=== PATIENT | male | born 1935 | race Caucasian/White ===

== ENCOUNTER 2016-09-26 17:12 | Emergency (ER) | payer MEDICARE ==
[~2016-09-26] VITALS: Ht 175.3 cm; Wt 56.7 kg
[2016-09-26 17:12] VITALS: Ht 175.3 cm; Wt 56.7 kg
[~2016-09-26 17:12] MED LIST: ALBU0.425 IH; AMOX500T2 PO; BENZ100C97 PO; HYDR-2164 PO; IPRA3AMP11 IH; LISI-126 PO; PRED10TA PO
--- OUTSIDE RECORDS SUMMARY | 2016-09-26 17:15 | XMS REPORT ---
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
--- OUTSIDE RECORDS SUMMARY | 2016-09-26 17:15 | XMS REPORT ---
Author Author Amanda Silverio [facility] eClinicalWorks Address Unknown Phone Unavailable Care Team Providers Care Per Diem Name Role Phone Amanda Silverio CP Unavailable Allergies No Known Allergies Problems Problem Type Condition ICD-9 Code Onset Dates Condition Status Problem Personal history of tobacco use, presenting hazards to health V15.82 Active Problem Hypertension, benign 401.1 Active Problem Chronic airway obstruction, not elsewhere classified 496 Active Problem Insomnia, unspecified 780.52 Active Medications No Known Medications Vital Signs Date/Time: Feb 25, 2014 Height 69 inches Weight 137.8 lbs Temperature 97.5 F Blood Pressure Diastolic 84 mm Hg Blood Pressure Systolic 130 mm Hg Cardiac Monitoring Heart Rate 84 Beats per Minute BMI 20.35 Index Respiratory Rate 22 per Minute Results No Known Results Summary Purpose eClinicalWorks Submission
--- OUTSIDE RECORDS SUMMARY | 2016-09-26 17:15 | XMS REPORT ---
Author Author Amanda Silverio [facility] eClinicalWorks Address Unknown Phone Unavailable Care Team Providers Care Factory Maintenance Technician Name Role Phone Amanda Silverio CP Unavailable Allergies No Known Allergies Problems Problem Type Condition ICD-9 Code Onset Dates Condition Status Problem Personal history of tobacco use, presenting hazards to health V15.82 Active Problem Hypertension, benign 401.1 Active Problem Chronic airway obstruction, not elsewhere classified 496 Active Problem Insomnia, unspecified 780.52 Active Medications No Known Medications Results No Known Results Summary Purpose eClinicalWorks Submission
--- OUTSIDE RECORDS SUMMARY | 2016-09-26 17:15 | XMS REPORT ---
Author Author Amanda Silverio [facility] eClinicalWorks Address Unknown Phone Unavailable Care Team Providers Care Ep Technologist Name Role Phone Amanda Silverio CP Unavailable Allergies No Known Allergies Problems Problem Type Condition ICD-9 Code Onset Dates Condition Status Problem Personal history of tobacco use, presenting hazards to health V15.82 Active Problem Hypertension, benign 401.1 Active Problem Chronic airway obstruction, not elsewhere classified 496 Active Problem Insomnia, unspecified 780.52 Active Medications Medication Code System Code Instructions Start Date End Date Status Dosage Albuterol Sulfate [facility] [address]-30 (2.5 MG/3ML) 0.083% Inhalation Four times a day Jan 14, 2013 Active 3 ml ProAir HFA [facility] [address]-94 108 (90 Base) MCG/ACT Inhalation every 2-4 hrs September 16, 2013 Active 2 puffs as needed Ipratropium [place] [facility] [address]-34 0.02% 0.5MG/VIA Active INHALE 1 VIAL VIA NEBULIZER 4 TIMES DAILY Hydrochlorothiazide [facility] [address]-67 25MG Active TAKE ONE TABLET BY MOUTH ONCE DAILY Lisinopril [facility] [address]-04 20MG Active TAKE TWO TABLETS BY MOUTH ONCE DAILY Vital Signs Date/Time: Mar 29, 2014 Height 69 inches Weight 138.8 lbs Temperature 97.7 F Blood Pressure Diastolic 50 mm Hg Blood Pressure Systolic 140 mm Hg Cardiac Monitoring Heart Rate 88 Beats per Minute BMI 20.49 Index Respiratory Rate 18 per Minute Results No Known Results Summary Purpose eClinicalWorks Submission
--- OUTSIDE RECORDS SUMMARY | 2016-09-26 17:15 | XMS REPORT ---
Author Author Amanda Silverio Organization eClinicalWorks Address Unknown Phone Unavailable Care Team Providers Care Element Setter Name Role Phone Amanda Silverio CP Unavailable Allergies No Known Allergies Problems Problem Type Condition ICD-9 Code Onset Dates Condition Status Problem Personal history of tobacco use, presenting hazards to health V15.82 Active Problem Hypertension, benign 401.1 Active Problem Chronic airway obstruction, not elsewhere classified 496 Active Problem Insomnia, unspecified 780.52 Active Assessment Dental abscess 522.5 Active Medications Medication Code System Code Instructions Start Date End Date Status Dosage Albuterol Sulfate [facility] [address]-36 (2.5 MG/3ML) 0.083% Inhalation Four times a day Jan 14, 2013 Active 3 ml Lisinopril [facility] [address]-05 20 MG Orally Once a day Feb 19, 2013 Active 2 tablets Hydrochlorothiazide [facility] [address]-07 25 MG Orally Once a day Active 1 capsule Amoxicillin [facility] [address]-16 500 MG Orally every 8 hrs Mar 29, 2014 Apr 08, 2014 Active 1 tablet ProAir HFA [facility] [address]-00 108 (90 Base) MCG/ACT Inhalation every 2-4 hrs September 16, 2013 Active 2 puffs as needed Procedures Procedure Coding System Code Date INJECTION (plus drug) CPT-4 05367 Mar 29, 2014 Lidocaine injection CPT-4 J2001 Mar 29, 2014 ROCEPHIN 250MG CPT-4 J0696 Mar 29, 2014 OFFICE VISIT, EST-LOW COMPLEXITY (15 MIN.) CPT-4 94751 Mar 29, 2014 Vital Signs Date/Time: Mar 29, 2014 Height 69 inches Weight 138.8 lbs Temperature 97.7 F Blood Pressure Diastolic 50 mm Hg Blood Pressure Systolic 140 mm Hg Cardiac Monitoring Heart Rate 88 Beats per Minute BMI 20.49 Index Respiratory Rate 18 per Minute Results No Known Results Immunizations Vaccine Administration Date Rocephin 500mg Mar 29, 2014 Lidocaine Mar 29, 2014 Summary Purpose eClinicalWorks Submission
--- OUTSIDE RECORDS SUMMARY | 2016-09-26 17:15 | XMS REPORT ---
Author Author Amanda Silverio [facility] eClinicalWorks Address Unknown Phone Unavailable Care Team Providers Care Proposal Analyst Name Role Phone Amanda Silverio CP Unavailable Allergies No Known Allergies Problems Problem Type Condition Code Onset Dates Condition Status Assessment Personal history of nicotine dependence Z87.891 Active Assessment Insomnia, unspecified G47.00 Active Problem Personal history of nicotine dependence Z87.891 Active Problem Chronic airway obstruction, not elsewhere classified 496 Active Problem Chronic obstructive pulmonary disease, unspecified J44.9 Active Problem Insomnia, unspecified 780.52 Active Assessment Chronic obstructive pulmonary disease, unspecified J44.9 Active Problem Personal history of tobacco use, presenting hazards to health V15.82 Active Problem Hypertension, benign 401.1 Active Medications Medication Code System Code Instructions Start Date End Date Status Dosage ProAir HFA [facility] [address]-89 108 (90 Base) MCG/ACT Inhalation every 2-4 hrs September 16, 2013 2 puffs as needed Albuterol Sulfate [facility] [address]-49 (2.5 MG/3ML) 0.083% Inhalation Four times a day Jan 14, 2013 3 ml Ipratropium [place] [facility] [address]-13 0.02% 0.5MG/VIA Inhalation Four times a day August 25, 2016 inhale one vial via nebulizer 4 times daily Procedures Procedure Coding System Code Date CMP CPT-4 14851 August 31, 2015 IH LIPID PANEL CPT-4 11289 August 31, 2015 COMPLETE CBC W/AUTO DIFF WBC CPT-4 51842 August 31, 2015 Results Name Result Date Reference Range Unit Abnormality Flag In House Lipid Panel ----VLDL 20 [id number] ----LDL 89 31912872 ----Chol/HDL Ratio 2.8 20150831 ----Cholesterol 168 90619538 ----HDL 59 38543860 ----Triglycerides 102 27875602 ----nHDLc 109 25844362 In House CMP ----BUN 15 96913194 7 - 22 mg/DL ----Calcium 9.5 70870544 8.0 - 10.3 mg/DL ----Alkaline Phosphatase 102 66031759 53 - 128 u/L ----Creatinine 1.0 88430161 0.6 - 1.2 mg/DL ----AST 23 25217003 11 - 38 u/L ----Total Bilirubin 0.7 75957284 0.2 - 1.6 mg/DL ----ALT 19 58796466 10 - 47 u/L ----Total Protein 6.9 14139899 6.4 - 8.1 G/DL ----Chloride 103 64777245 98 - 108 mmol/L ----Glucose 90 53463182 73 - 118 mg/DL ----Potassium 4.4 48033969 3.6 - 5.1 mmol/L ----Albumin 3.8 88574428 3.3 - 5.5 g/DL ----EGFR >60 34200797 ----CO2 32 59662756 18 - 33 mmol/L ----Sodium 142 68452678 128 - 145 mmol/L Summary Purpose eClinicalWorks Submission
--- OUTSIDE RECORDS SUMMARY | 2016-09-26 17:15 | XMS REPORT ---
Author Author Amanda Silverio [facility] eClinicalWorks Address Unknown Phone Unavailable Care Team Providers Care Commercial Sewing Instructor Name Role Phone Amanda Silverio CP Unavailable [...]
--- OUTSIDE RECORDS SUMMARY | 2016-09-26 17:16 | XMS REPORT ---
Author Author Amanda Silverio [facility] eClinicalWorks Address Unknown Phone Unavailable Care Team Providers Care Registered Nurse Obstetrics Name Role Phone Amanda Silverio CP Unavailable [...]
--- OUTSIDE RECORDS SUMMARY | 2016-09-26 17:16 | XMS REPORT ---
Author Amanda Vu [facility] eClinicalWorks Address Unknown Phone Unavailable Care Team Providers Care Rail Gang Supervisor Name Role Phone Amanda Silverio CP Unavailable Allergies No Known Allergies Problems Problem Type Condition ICD-9 Code Onset Dates Condition Status Problem Personal history of tobacco use, presenting hazards to health V15.82 Active Problem Hypertension, benign 401.1 Active Problem Chronic airway obstruction, not elsewhere classified 496 Active Assessment Personal history of tobacco use, presenting hazards to health V15.82 Active Assessment Hypertension, benign 401.1 Active Problem Insomnia, unspecified 780.52 Active Assessment Chronic airway obstruction, not elsewhere classified 496 Active Medications Medication Code System Code Instructions Start Date End Date Status Dosage Lisinopril [facility] [address]-32 20 MG Orally Once a day Feb 19, 2013 Active 2 tablets ProAir HFA [facility] [address]-74 108 (90 Base) MCG/ACT Inhalation every 2-4 hrs September 16, 2013 Active 2 puffs as needed Hydrochlorothiazide [facility] [address]-64 25 MG Orally Once a day Active 1 capsule Albuterol Sulfate [facility] [address]-58 (2.5 MG/3ML) 0.083% Inhalation Four times a day Jan 14, 2013 Active 3 ml Procedures Procedure Coding System Code Date COMPREHENSIVE METABOLIC PANEL CPT-4 59570 Feb 25, 2014 LIPID PANEL CPT-4 27818 Feb 25, 2014 COMPLETE CBC W/AUTO DIFF WBC CPT-4 04584 Feb 25, 2014 OFFICE VISIT, EST-LOW COMPLEXITY (15 MIN.) CPT-4 09539 Feb 25, 2014 Vital Signs Date/Time: Feb 25, 2014 Height 69 inches Weight 137.8 lbs Temperature 97.5 F Blood Pressure Diastolic 84 mm Hg Blood Pressure Systolic 130 mm Hg Cardiac Monitoring Heart Rate 84 Beats per Minute BMI 20.35 Index Respiratory Rate 22 per Minute Results Name Result Date Reference Range Unit CBC With Platelet and Differential ----Absolute Eosinophils 0.05 13845135 -0.00-0.50 THOUS ----Absolute Monocytes 0.68 84671554 -0.30-1.00 THOUS ----Neutrophils 57 72144183 -51-75 % ----Absolute Basophils 0.01 82435594 -0.00-0.20 THOUS ----MPV 9.0 02411205 -8.8-14.8 fL ----Monocytes 12 69427408 -4-11 % ----RDW 13.1 08517482 -11.5-14.5 % ----Lymphocytes 29 06593320 -20-46 % ----MCHC 34.3 13992901 -32.0-36.0 g/dL ----MCH 33.0 36264881 -27.0-32.0 pg ----MCV 96.1 12462905 -82.0-99.0 fL ----Immature Granulocytes 0.2 27979167 -0.0-1.0 % ----Platelet Count 233 35573738 -150-400 K/uL ----Absolute Lymphocytes 1.66 75882968 -0.80-3.30 THOUS ----Absolute Neutrophils 3.25 46880820 -1.90-7.00 THOUS ----Eosinophils 1 39204518 -0-4 % ----Basophils 0 41302138 -0-2 % ----WBC 5.7 75266281 -4.8-10.8 K/uL ----RBC 4.58 65048101 -4.60-6.20 M/uL ----HGB 15.1 04911468 -14.0-18.0 g/dL ----HCT 44.0 62389917 -42.0-52.0 % Comprehensive Metabolic Panel (CMP) Immunizations Vaccine Administration Date Refused Influenza Feb 25, 2014 Refused Pneumovax Feb 25, 2014 Summary Purpose eClinicalWorks Submission
--- OUTSIDE RECORDS SUMMARY | 2016-09-26 17:16 | XMS REPORT ---
Author Author Amanda Silverio [facility] eClinicalWorks Address Unknown Phone Unavailable Care Team Providers Care [place]ra [place]ta Setter Name Role Phone Amanda Silverio CP Unavailable Allergies No Known Allergies Problems Problem Type Condition ICD-9 Code Onset Dates Condition Status Problem Personal history of tobacco use, presenting hazards to health V15.82 Active Problem Hypertension, benign 401.1 Active Problem Chronic airway obstruction, not elsewhere classified 496 Active Problem Insomnia, unspecified 780.52 Active Assessment Hypertension, benign 401.1 Active Medications Medication Code System Code Instructions Start Date End Date Status Dosage Hydrochlorothiazide [facility] [address]-74 25MG Orally Once a day 1 tablet Lisinopril [facility] [address]-92 20MG Orally Once a day TAKE TWO TABLETS BY MOUTH ONCE DAILY Results No Known Results Summary Purpose eClinicalWorks Submission
--- OUTSIDE RECORDS SUMMARY | 2016-09-26 17:16 | XMS REPORT ---
Author Author Amanda Silverio [facility] eClinicalWorks Address Unknown Phone Unavailable Care Team Providers Care Film Processing Shift Supervisor Name Role Phone Amanda Silverio CP Unavailable Allergies No Known Allergies Problems Problem Type Condition Code Onset Dates Condition Status Problem Chronic obstructive pulmonary disease, unspecified J44.9 Active Problem Personal history of nicotine dependence Z87.891 Active Problem Essential (primary) hypertension I10 Active Problem Hypertension, benign 401.1 Active Problem Insomnia, unspecified 780.52 Active Problem Chronic airway obstruction, not elsewhere classified 496 Active Problem Personal history of tobacco use, presenting hazards to health V15.82 Active Medications No Known Medications Results No Known Results Summary Purpose eClinicalWorks Submission
--- OUTSIDE RECORDS SUMMARY | 2016-09-26 17:16 | XMS REPORT ---
Author Amanda Vu eClinicalWorks Address Unknown Phone Unavailable Care Team Providers Care Last Inserter Name Role Phone Amanda Silverio CP Unavailable Allergies, Adverse Reactions, Alerts Substance Reaction Event Type N.K.D.A. 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 [address]-78 0.02% 0.5MG/VIA Inhalation Four times a day September 08, 2015 INHALE ONE VIAL VIA NEBULIZER 4 TIMES DAILY Albuterol Sulfate [facility] [address]-89 (2.5 MG/3ML) 0.083% Inhalation Four times a day Jan 14, 2013 3 ml Hydrochlorothiazide [facility] [address]-41 25MG Orally Once a day 1 tablet [address] [facility] [address]-57 20MG Orally Once a day TAKE TWO TABLETS BY MOUTH ONCE DAILY ProAir HFA [facility] [address]-24 108 (90 Base) MCG/ACT Inhalation every 2-4 hrs September 16, 2013 2 puffs as needed Amoxicillin-Pot Clavulanate [facility] [address]-06 875-125 MG Orally Twice a day Mar 24, 2015 Mar 31, 2015 1 tablet Procedures Procedure Coding System Code Date OFFICE VISIT, EST-LOW COMPLEXITY (15 MIN.) CPT-4 47060 Mar 24, 2015 [facility] visit Established Patient CPT-4 G0467 Mar 24, 2015 Vital Signs Date/Time: Mar 24, 2015 Height 69 in Weight 136.8 lbs Temperature 97.7 F Blood Pressure Diastolic 63 mm Hg Blood Pressure Systolic 104 mm Hg Cardiac Monitoring Heart Rate 88 /min BMI 20.20 Index Respiratory Rate 16 /min Results No Known Results Summary Purpose eClinicalWorks Submission
--- OUTSIDE RECORDS SUMMARY | 2016-09-26 17:16 | XMS REPORT ---
Author Amanda Vu eClinicalWorks Address Unknown Phone Unavailable Care Team Providers Care Detective Sergeant Name Role Phone Amanda Silverio CP Unavailable [...] Date End Date Status Dosage ProAir HFA [facility] [address]-78 108 (90 Base) MCG/ACT Inhalation every 2-4 hrs September 16, 2013 2 puffs as needed Albuterol Sulfate [facility] [address]-20 (2.5 MG/3ML) 0.083% Inhalation Four times a day Jan 14, 2013 3 ml Ipratropium [place] [facility] [address]-03 0.02% 0.5MG/VIA Inhalation Four times a day September 08, 2015 INHALE ONE VIAL VIA NEBULIZER 4 TIMES DAILY Lisinopril [facility] [address]-43 20MG Orally Once a day TAKE TWO TABLETS BY MOUTH ONCE DAILY Hydrochlorothiazide [facility] [address]-19 25MG Orally Once a day TAKE ONE TABLET BY MOUTH ONCE DAILY Procedures Procedure Coding System Code Date [facility] visit Established Patient CPT-4 G0467 September 27, 2014 OFFICE VISIT, EST-LOW COMPLEXITY (15 MIN.) CPT-4 19791 September 27, 2014 [facility] visit New Patient CPT-4 G0466 September 27, 2014 Vital Signs Date/Time: September 27, 2014 Height 69 in Weight 132.8 lbs Temperature 97.8 F Blood Pressure Diastolic 74 mm Hg Blood Pressure Systolic 110 mm Hg Cardiac Monitoring Heart Rate 88 /min BMI 19.61 Index Respiratory Rate 16 /min Results No Known Results Summary Purpose eClinicalWorks Submission
--- OUTSIDE RECORDS SUMMARY | 2016-09-26 17:16 | XMS REPORT ---
Author Author Amanda Silverio [facility] eClinicalWorks Address Unknown Phone Unavailable Care Team Providers Care Denture Model Maker Name Role Phone Amanda Silverio CP Unavailable [...]
--- OUTSIDE RECORDS SUMMARY | 2016-09-26 17:16 | XMS REPORT ---
Author Author Amanda Silverio [facility] eClinicalWorks Address Unknown Phone Unavailable Care Team Providers Care Hoop Maker Name Role Phone Amanda Silverio CP [...] Start Date End Date Status Dosage Ipratropium [place] [facility] [address]-34 0.02% 0.5MG/VIA Inhalation Four times a day September 08, 2015 INHALE ONE VIAL VIA NEBULIZER 4 TIMES DAILY Lisinopril [facility] [address]-32 20MG Orally Once a day TAKE TWO TABLETS BY MOUTH ONCE DAILY Hydrochlorothiazide [facility] [address]-47 25MG Orally Once a day TAKE ONE TABLET BY MOUTH ONCE DAILY Results No Known Results Summary Purpose eClinicalWorks Submission
--- OUTSIDE RECORDS SUMMARY | 2016-09-26 17:16 | XMS REPORT ---
Author Author Amanda Silverio [facility] eClinicalWorks Address Unknown Phone Unavailable Care Team Providers Care Motion Picture Actor Name Role Phone Amanda Silverio CP Unavailable [...]
--- OUTSIDE RECORDS SUMMARY | 2016-09-26 17:16 | XMS REPORT ---
Author Author Amanda Silverio [facility] eClinicalWorks Address Unknown Phone Unavailable Care Team Providers Care Delivery And Mail Sorter Name Role Phone Amanda Silverio CP Unavailable [...] Date End Date Status Dosage Albuterol Sulfate [facility] [address]-21 (2.5 MG/3ML) 0.083% Inhalation Four times a day Jan 14, 2013 3 ml Vital Signs Date/Time: May 20, 2014 Height 69 inches Weight 133.4 lbs Temperature 97.3 F Blood Pressure Diastolic 84 mm Hg Blood Pressure Systolic 128 mm Hg Cardiac Monitoring Heart Rate 92 Beats per Minute BMI 19.70 Index Respiratory Rate 18 per Minute Results No Known Results Summary Purpose eClinicalWorks Submission
--- OUTSIDE RECORDS SUMMARY | 2016-09-26 17:16 | XMS REPORT ---
Author Author Amanda Silverio Organization eClinicalWorks Address Unknown Phone Unavailable Care Team Providers Care Plastering Supervisor Name Role Phone Amanda Silverio CP [...] Start Date End Date Status Dosage Ipratropium [place] [facility] [address]-72 0.02% 0.5MG/VIA Inhalation Four times a day August 25, 2016 inhale one vial via nebulizer 4 times daily Albuterol Sulfate [facility] [address]-12 (2.5 MG/3ML) 0.083% Inhalation Four times a day Jan 14, 2013 3 ml ProAir HFA [facility] [address]-26 108 (90 Base) MCG/ACT Inhalation every 2-4 hrs September 16, 2013 2 puffs as needed Procedures Procedure Coding System Code Date OFFICE VISIT, EST-LOW COMPLEXITY (15 MIN.) CPT-4 53280 August 31, 2015 [facility] visit Established Patient CPT-4 G0467 August 31, 2015 Vital Signs Date/Time: August 31, 2015 Temperature 98.0 F Height 69 in Weight 135.8 lbs Blood Pressure Diastolic 90 mm Hg Blood Pressure Systolic 128 mm Hg Cardiac Monitoring Heart Rate 88 /min BMI 20.05 Index Respiratory Rate 16 /min Results No Known Results Summary Purpose eClinicalWorks Submission
--- OUTSIDE RECORDS SUMMARY | 2016-09-26 17:16 | XMS REPORT ---
Author Author Amanda Silverio [facility] eClinicalWorks Address Unknown Phone Unavailable Care Team Providers Care General Production Laborer Name Role Phone Amanda Silverio CP Unavailable [...] Start Date End Date Status Dosage Ipratropium [place] [facility] [address]-28 0.02% 0.5MG/VIA Inhalation Four times a day September 08, 2015 INHALE ONE VIAL VIA NEBULIZER 4 TIMES DAILY Results No Known Results Summary Purpose eClinicalWorks Submission
--- OUTSIDE RECORDS SUMMARY | 2016-09-26 17:16 | XMS REPORT ---
Author Author Amanda Silverio [facility] eClinicalWorks Address Unknown Phone Unavailable Care Team Providers Care Surveyor Helper Rod Name Role Phone Amanda Silverio CP Unavailable Allergies No Known Allergies Problems Problem Type Condition Code Onset Dates Condition Status Problem Personal history of tobacco use, presenting hazards to health V15.82 Active Problem Hypertension, benign 401.1 Active Problem Chronic airway obstruction, not elsewhere classified 496 Active Assessment Hypertension, benign 401.1 Active Problem Insomnia, unspecified 780.52 Active Assessment Chronic airway obstruction, not elsewhere classified 496 Active Medications Medication Code System Code Instructions Start Date End Date Status Dosage Hydrochlorothiazide [facility] [address]-06 25MG Orally Once a day TAKE ONE TABLET BY MOUTH ONCE DAILY Lisinopril [facility] [address]-76 20MG Orally Once a day TAKE TWO TABLETS BY MOUTH ONCE DAILY Albuterol Sulfate [facility] [address]-10 (2.5 MG/3ML) 0.083% Inhalation Four times a day Jan 14, 2013 3 ml ProAir HFA [facility] [address]-02 108 (90 Base) MCG/ACT Inhalation every 2-4 hrs September 16, 2013 2 puffs as needed Ipratropium [place] [facility] [address]-77 0.02% 0.5MG/VIA Inhalation Four times a day September 08, 2015 INHALE ONE VIAL VIA NEBULIZER 4 TIMES DAILY Procedures Procedure Coding System Code Date COMPLETE CBC W/AUTO DIFF WBC CPT-4 62234 September 27, 2014 Results No Known Results Summary Purpose eClinicalWorks Submission
--- OUTSIDE RECORDS SUMMARY | 2016-09-26 17:16 | XMS REPORT ---
Author Author Amanda Silverio [facility] eClinicalWorks Address Unknown Phone Unavailable Care Team Providers Care Optical Technician Name Role Phone Amanda Silverio CP Unavailable Allergies No Known Allergies Problems Problem Type Condition ICD-9 Code Onset Dates Condition Status Problem Personal history of tobacco use, presenting hazards to health V15.82 Active Problem Hypertension, benign 401.1 Active Problem Chronic airway obstruction, not elsewhere classified 496 Active Problem Insomnia, unspecified 780.52 Active Medications No Known Medications Vital Signs Date/Time: May 28, 2013 Height 69 inches Weight 139.8 lbs Temperature 96.2 F Blood Pressure Diastolic 70 mm Hg Blood Pressure Systolic 130 mm Hg Cardiac Monitoring Heart Rate 80 Beats per Minute BMI 20.64 Index Respiratory Rate 16 per Minute Results No Known Results Summary Purpose eClinicalWorks Submission
--- OUTSIDE RECORDS SUMMARY | 2016-09-26 17:16 | XMS REPORT ---
Author Author Amanda Silverio [facility] eClinicalWorks Address Unknown Phone Unavailable Care Team Providers Care Solar Sales Advisor Name Role Phone Amanda Silverio CP Unavailable [...] Date End Date Status Dosage ProAir HFA [facility] [id number] (90 Base) MCG/ACT Inhalation every 2-4 hrs September 16, 2013 2 puffs as needed Results No Known Results Summary Purpose eClinicalWorks Submission
[2016-09-26] MEDS ORDERED: NORMAL SALINE 1,000 ML IV ONE (17:28)
--- NOTE | 2016-09-26 17:28 | ERPDOC ---
Departure Disposition Decision Date: September 26, 2016 Disposition Decision Time: 18:47 Disposition: 01 DISCHARGED HOME, SELF-CARE Impression Impression Impression: Primary Impression: Pneumonia Additional Impression: COPD exacerbation Severity: Severe Condition: Improved Seen By: Physician only Referrals: GLORIA VILLALPANDO APRN (Family) Patient Instructions: COPD (Chronic Obstructive Pulmonary Disease) (ED), Pneumonia (ED) Problems/Meds/Labs Reviewed?: Yes Medications reviewed and manag: Yes Additional Instructions: Zithromax 500 mg daily for 3 days. Prednisone 10 mg tablet. 3 tabs daily for 3 days, 2 tabs daily for 3 days, 1 tab daily for 3 days. Follow-up with your primary care provider in the next 48 hours. Follow up care ordered?: Yes Mental Status: Alert, Oriented Scripts Prednisone (Prednisone) 10 Mg Tablet 0 PO TAPERQD, #18 TAB 30 mg daily x3 days 20 mg daily x3 days 10 mg daily x2 days Prov: AMALIA GORDILLO MD 09/26/16 HPI - Dyspnea General Chief Complaint: Dyspnea/Respdistress Stated Complaint: CHEST TIGHTNESS Time Seen by Provider: 17:27 HPI - Dyspnea Initial Comments 81-year-old gentleman with acute respiratory distress, brought in by EMS. Patient was given Solu-Medrol 125 mg IV on transport and started on albuterol nebulizer by mask. He has long-standing history of COPD, and is greater than 65- pack-year history of smoking. He is still smoking 1/3-1/2 pack per day but trying to cut down. He was out trying to help his son today got into some dust and that set off his breathing issues. He feels like his little thirsty and dehydrated. Initially he was breathing approximately 40 times per minute and satting 98% on room air, but still feeling very short of breath. Fevers or chills but has been feeling more weak the last couple of days, feels like he may be coming down with something. His mucous is been thickening and turning darker until today he had a hard time bringing it up at all. Allergies: Coded Allergies: No Known Drug Allergies (Verified Allergy, Unknown, 09/12/14) Past History Past Medical History Metabolic: hypertension Respiratory: COPD Integumentary: other Vaccines Hx Influenza Vaccination: No Social History Smoking Status: Current every day smoker Substance Use Type: does not use Record Review Pertinent history updated: Yes Review of Systems Cardiovascular Cardiac: see HPI Rhythm/Rate: see HPI Pulmonary Respiratory: see HPI Musculoskeletal General: see HPI All other Systems All Other Systems: Reviewed and Negative Physical Exam General General Nourishment: adult, cachectic, acute distress Distress Description Acutely short of air, patient is gasping and gulping air. Vitals and Pain First Documented Vital Signs Date Time Temp Pulse Resp B/P Pulse Ox O2 Delivery O2 Flow Rate FiO2 09/26/16 17:12 97.6 103 24 150/107 97 Room Air Weight: Kilograms: Height (feet): 5 Height (inches): 9 Triage Pain Scale: Normal Exams: Head: Normocephalic w/o trauma Abdomen: Bowel sounds positive, soft, non-tender, non-distended, no hepatosplenomegaly, masses or bruits noted Neurologic: Patient is alert, and oriented, cranial nerves, motor/sensory/ cerebellar, exams w/o gross deficits, to observation Respiratory (brief) Comments Significant expiratory wheeze with prolonged expiration. This is a bilateral phenomenon, however right side has worse expiration wheezing. Cardiovascular (brief) Comments Tachycardic. Differential Diagnoses Considering: Acute Bronchitis, Acute OH, Acute Respiratory Failure, Asthma Exacerbation, COPD Exacerbation, Pneumonia, Pulmonary Edema, Pulmonary Embolus Progress Results/Orders Orders Procedure Category Date Status Time Cmp - Comprehensive LAB 09/26/16 Complete Metabolic 17:28 Blood Gas, Arterial - LAB 09/26/16 Complete ABG 17:28 Probnp LAB 09/26/16 Complete 17:28 Cbc W/Auto LAB 09/26/16 Complete Diff-Reflex Manual 17:28 Blood Culture ZACHARIAH 09/26/16 In Process 17:28 D-Dimer LAB 09/26/16 Complete 17:28 Troponin I W LAB 09/26/16 Complete Hemolysis Index 17:28 Ua, Dip Wreflex LAB 09/26/16 Logged Microsc & Metal Patternmaker 17:28 Sputum Culture W/Gram ZACHARIAH 09/26/16 Logged Stain 17:28 EKG EKG 09/26/16 Logged 17:28 Chest, Pa & Lateral RAD 09/26/16 Taken 17:28 Iv Lock (Ed Only) EDM 09/26/16 Transmitted 17:28 Normal Saline (Normal PHA 09/26/16 In Process Saline Iv) 17:28 Albuterol/Ipratropium PHA 09/26/16 Complete (Duoneb) 17:30 Oxygen Administration EDM 09/26/16 Transmitted 17:28 Respiratory Panel, Pcr LAB 09/26/16 Logged 17:28 Lab Results Laboratory Tests Test 09/26/16 17:42 09/26/16 18:03 White Blood Count 6.3T/MM3 Red Blood Count 4.66M/MM3 Hemoglobin 15.2GM/DL Hematocrit 44.1% Mean Corpuscular Volume 94.6UM3 Mean Corpuscular Hemoglobin 32.6UUG Mean Corpuscular Hemoglobin Concent 34.5GM/DL RDW Standard Deviation 43.2FL Platelet Count 197T/MM3 Mean Platelet Volume 8.8UM3 Immature Granulocyte % (Auto) 0.2% Neutrophils (%) (Auto) 60.1% Lymphocytes (%) (Auto) 28.4% Monocytes (%) (Auto) 10.0% Eosinophils (%) (Auto) 1.1% Basophils (%) (Auto) 0.2% Absolute Immature Granulocyte (auto 0.01T/MM3 Absolute Neutrophils (auto) 3.8T/MM3 Absolute Lymphocytes (auto) 1.8T/MM3 Absolute Monocytes (auto) 0.6T/MM3 Absolute Eosinophils (auto) 0.1T/MM3 Absolute Basophils (auto) 0.0T/MM3 D-Dimer 294NG/ML Turbidity < 20 Sodium Level 141MEQ/L Potassium Level 3.8MEQ/L Chloride Level 95MEQ/L Carbon Dioxide Level 33MEQ/L Anion Gap 13MEQ/L Blood Urea Nitrogen 16.0MG/DL Creatinine 1.0MG/DL Glomerular Filtration Rate Calc 72 BUN/Creatinine Ratio 16RATIO Glucose Level 111MG/DL Calculated Osmolality 273MOSM/KG Calcium Level 9.3MG/DL Total Bilirubin 1.00MG/DL Icterus Index < 2 Aspartate Amino Transf (AST/SGOT) 22U/L Alanine Aminotransferase (ALT/SGPT) 39U/L Alkaline Phosphatase 113U/L Troponin I < 0.012ng/ml WR-Ccp-L-Type Natriuretic Peptide 634PG/ML Total Protein 7.1G/DL Albumin 4.3G/DL Globulin 2.8G/DL Albumin/Globulin Ratio 1.5RATIO Chemistry Specimen Hemolysis < 15 Arterial Blood pH 7.430 Arterial Blood Partial Pressure CO2 51MMHG Arterial Blood pO2 at Patient Temp 63MMHG Arterial Blood HCO3 34MEQ/L Arterial Blood Total CO2 35.5MEQ/L Arterial Blood Oxygen Saturation 92.0% Arterial Blood Base Excess 8.2MMOL/L Oxygen Delivery Method (LAB) Nasal cannula,liters Blood Gas Oxygen Liter Flow 2 Blood Gas Oxygen Percent Given Blood Gas Vent Rate Blood Gas Tidal Volume ML Medications Current ED Medications Sodium Chloride (Normal Saline IV) 1,000 ml @ 500 mls/hr Q2H ONCE IV Last administered on 09/26/16 18:03; Start 09/26/16 at 17:28; Stop 09/26/16 at 19:27 Albuterol/ Ipratropium (Duoneb) 3 ml O ONCE AEROSOL Last administered on 17:20; Start 09/26/16 at 17:30; Stop 09/26/16 at 17:34; Status DC Progress Progress Patient responded well to a second DuoNeb treatment after arriving in ER. He initially came in from the EMS with 125 Solu-Medrol IV and a partially finished albuterol treatment. That was finish the second DuoNeb was added and he was given time. During which he improved dramatically. Chest x-ray shows probable right lower lobe infiltrate. White count is normal at 6.3. He does have slightly elevated BUNs. However think this is infectious and inflammatory rather than dehydration is an issue for him. Port score was 50 which keeps him low risk and outpatient. He would like to go home rather than be admitted to the hospital at this point. We are still pending a viral respiratory panel and urinalysis. If he is still stable to time does arrive and he would like to go home I feel like this is appropriate. He'll be given Rocephin 1 g IV while in the ER and discharged on Zithromax 500 mg daily for 3 days and a prednisone burst and taper. He'll continue with his home nebulizer and follow up with his primary care provider. AMALIA GORDILLO MD September 26, 2016 17:28
[2016-09-26] MEDS ORDERED: ALBUTEROL/IPRATROPIUM INHAL. 2.5mg-0.5mg/3ml Neb. AEROSOL ONE (17:30)
--- NOTE | 2016-09-26 17:47 | NUR ---
IMAGING PT TO IMAGING AT THIS TIME VIA CART. NO SIGN OF DISTRESS AT THIS TIME.
[2016-09-26 17:53] LABS: BASOPHILS % (AUTO) 0.2 % (0-2); EOSINOPHILS # (AUTO) 0.1 T/MM3 (0-0.5); EOSINOPHILS % (AUTO) 1.1 % (0-4); HCT - HEMATOCRIT 44.1 % (41-53); HGB - HEMOGLOBIN 15.2 GM/DL (13.5-17.5); IMMATURE GRANULOCYTE # (AUTO) 0.01 T/MM3 (0.00-0.03); IMMATURE GRANULOCYTE % (AUTO) 0.2 % (0.0-0.5); LYMPHOCYTES # (AUTO) 1.8 T/MM3 (1-4.8); LYMPHOCYTES % (AUTO) 28.4 % (23-45); MEAN CORPUSCULAR HGB 32.6 UUG (26-34); MEAN CORPUSCULAR HGB CONC(MCHC 34.5 GM/DL (31-37); MEAN CORPUSCULAR VOLUME 94.6 UM3 (80-100); MEAN PLATELET VOLUME 8.8 UM3 (9.4-12.4); MONOCYTES # (AUTO) 0.6 T/MM3 (0-0.8); NEUTROPHILS #(AUTO)-ABSOLUTE 3.8 T/MM3 (1.8-7.7); NEUTROPHILS % (AUTO) 60.1 % (33-66); RED BLOOD COUNT 4.66 M/MM3 (4.50-5.90); WBC - WHITE BLOOD COUNT 6.3 T/MM3 (4.5-11.0)
[2016-09-26] MEDS ORDERED: ALBU8.5H INH (17:53)
--- NOTE | 2016-09-26 17:57 | NUR ---
IMAGING PT RETURN TO ROOM FROM IMAGING AT THIS TIME - NO SIGN OF DISTRESS.
[2016-09-26 18:03] LABS: ALBUMIN 4.3 G/DL (3.5-5.0); ALBUMIN/GLOBULIN RATIO 1.5 RATIO (1.1-2.2); ALKALINE PHOSPHATASE 113 U/L (38-126); ALT (SGPT) 39 U/L (21-72); ANION GAP 13 MEQ/L (5-15); AST (SGOT) 22 U/L (17-59); BUN/CREATININE RATIO 16 RATIO (6-26); CALCIUM 9.3 MG/DL (8.4-10.2); CHLORIDE 95 MEQ/L (98-107); CO2 - CARBON DIOXIDE 33 MEQ/L (22-30); GLOMERULAR FILTRATION RATE 72; GLUCOSE 111 MG/DL (75-110); POTASSIUM 3.8 MEQ/L (3.6-5); SODIUM 141 MEQ/L (134-144); TOTAL PROTEIN 7.1 G/DL (6.3-8.2)
[2016-09-26 18:14] LABS: PROBNP 634 PG/ML (0-175)
[2016-09-26] MEDS ORDERED: IPRA3AMP AEROSOL (18:26)
--- NOTE | 2016-09-26 18:29 | NUR ---
REPORT RECIEVED REPORT FROM ENEIDA GARRETT
--- NOTE | 2016-09-26 18:30 | NUR ---
RESP PANEL RESP PANEL IS COLLECTED AND SENT TO LAB
--- NOTE | 2016-09-26 18:48 | NUR ---
UA PT URINATED IN URINAL. UA COLLECTED AND SENT TO LAB
[2016-09-26] MEDS ORDERED: PRED10TA PO (18:49)
[2016-09-26 18:54] LABS: BLOOD, URINE NEGATIVE (NEGATIVE); COLOR,URINE YELLOW (YELLOW); LEUKOCYTE ESTERASE ,URINE NEGATIVE (NEGATIVE); NITRITE,URINE NEGATIVE (NEGATIVE); UROBILINOGEN,URINE 0.2 EU/DL (NORMAL)
[2016-09-26] MEDS ORDERED: CEFTRIAXONE I.V. (ER USE ONLY) 1 G in NORMAL SALINE 100 ML IV ONE (19:00)
[2016-09-26] MEDS ORDERED: AZITHROMYCIN 250 MG SENT HOME ONE (19:00)
--- NOTE | 2016-09-26 19:10 | NUR ---
STATUS PT UP TO THE BATHROOM WITH O2 AT 2L/NC
[2016-09-26 20:40] VITALS: BP 132/83; PULSE 88; RESP 30; TEMP 97.8; O2SAT 91
--- NOTE | 2016-09-26 20:40 | NUR ---
DEPART PT IS GIVEN DISMISSAL INSTRUCTIONS WITH VERBAL UNDERSTANDING. PT UNDERSTANDS HE NEEDS TO FOLLOW UP AT [facility]. PT IS GIVEN P[REPACK AND SCRIPT. PT LEAVES AMBULATORY TO ED REGISTRATION DESK.
--- NOTE | 2016-09-27 08:39 | DI ---
INDICATION: ITS.REASON: dyspnea PROCEDURE: CHEST 2-VIEWS UPRIGHT (PA \T\ LAT) Encounter: Initial Comparison: September 12, 2014 Findings: The lungs are stable in appearance without new focal airspace consolidation. Emphysema. There is no pleural effusion or pneumothorax. The heart size, pulmonary vascularity and mediastinal contours are unchanged. IMPRESSION: Stable appearance of the chest without acute cardiopulmonary disease. .
== END 2016-09-26 20:40 | disposition home or self-care (01) ==
LOC: ED 17:12
DX: J44.0 Chronic obstructive pulmonary disease with (acute) lower respiratory infection (principal); J18.9 Pneumonia, unspecified organism; J44.1 Chronic obstructive pulmonary disease with (acute) exacerbation; F17.200 Nicotine dependence, unspecified, uncomplicated
CPT/HCPCS: 36415; 71020; 80053; 81003; 82803; 83880; 84484; 85025; 85379; 87040; 87486; 87581; 87633; 87798; 93005; 94640; 96361; 96365; 99284; A9270; J0696; J7030; J7050; 87070; 87205

== ENCOUNTER 2016-10-05 04:11 | Emergency (ER) | payer MEDICARE ==
[~2016-10-05] VITALS: Ht 175.3 cm; Wt 55.0 kg
[~2016-10-05 04:11] MED LIST changes: -ALBU0.425 IH; +ALBU8.5H INH; -AMOX500T2 PO; -BENZ100C97 PO; +IPRA3AMP AEROSOL; -IPRA3AMP11 IH; -LISI-126 PO
[2016-10-05 04:12] VITALS: Ht 175.3 cm; Wt 55.0 kg
--- NOTE | 2016-10-05 04:15 | NUR ---
PROVIDER/RT DR. GORDILLO AND RT IN ROOM WITH PT.
--- OUTSIDE RECORDS SUMMARY | 2016-10-05 04:16 | XMS REPORT | Continuity of Care Document ---
Author Author [facility] Organization [facility] Address Unknown Phone Unavailable Support Name Relationship Address Phone ANNALISA MEIER APRN Caregiver [address] [place] [address] Unavailable AMALIA GORDILLO MD Caregiver [address] [place] [id number] Unavailable PEMA FELICIANO Next Of Kin [address] [place] [address] Insurance Providers Guarantor Bipin Feliciano Address [address] [place] [address] Email DENIED 09-26-16 Payer Medicare Policy Number [id number] Subscriber's Name RejiBipin valle Relationship 18 Self Effective Date 01 Chief Complaint and Reason for Visit Chief Complaint Dyspnea/Respdistress Reason for Visit [id number] Pneumonia Problems Active Problems Medical Problem Onset Date Status Acute bronchitis Unknown Acute Past Problems Medical Problem Onset Date COPD exacerbation Unknown Pneumonia Unknown Medications Current Home Medications Medication Dose Units Route Directions Days Qty Instructions Start Date Albuterol Sulfate (Proair Hfa 90 Mcg/Actuation) 8.5 Gm Hfa.aer.ad 1 Puff Inhalation Every 4 Hours as needed for Prn Orders 09/26/16 Hydrochlorothiazide 25 Mg Tablet 25 Mg Oral Daily 08/18/11 Ipratropium/Albuterol Sulfate (Iprat-Albut 0.5-3(2.5) Mg/3 Ml) 3 Ml Ampul.neb 1 Vial Aerosol Tx. Every 4 Hours as needed for Prn Orders 09/26/16 Prednisone 10 Mg Tablet 0 Oral Taper Qd 18 Tablet 30 mg daily x3 days 20 mg daily x3 days 10 mg daily x2 days 09/26/16 Past Home Medications Medication Directions Ordered Status None , 10/26/09 Discontinued Social History Social History Problem Response Recorded Date/Time Onset Date Status Hx Substance Use No 09/26/2016 8:00pm Not Applicable Not Applicable Hx Alcohol Use No 09/26/2016 8:00pm Not Applicable Not Applicable Tobacco Usage smoke 09/24/2014 1:26pm Not Applicable Not Applicable Query Response Start Date Stop Date Smoking Status Current every day smoker Hospital Discharge Instructions No hospital discharge instructions. Plan of Care Discharge Date 09/26/16 8:40pm Disposition 01 DISCHARGED HOME, SELF-CARE Condition at Discharge Improved Instructions/Education Provided COPD (Chronic Obstructive Pulmonary Disease) ( ED) Pneumonia (ED) Prescriptions See Medication Section Referrals ANNALISA MEIER TYRE FINISHER AND EXAMINER Address: [address] [place], [place] [phone] Additional Instructions/Education Zithromax 500 mg daily for 3 days. Prednisone 10 mg tablet. 3 tabs daily for 3 days, 2 tabs daily for 3 days, 1 tab daily for 3 days. Follow-up with your primary care provider in the next 48 hours. Care Plan and Goals Physician Care Plan Problem: COPD with PNA Goal: Follow up with primary care provider Instructions: Take medications and follow care plan as discussed/written Functional Status No functional status results. Allergies, Adverse Reactions, Alerts Allergen Type Severity Reaction Status Last Updated No Known Drug Allergies Allergy Unknown Active 09/12/14 Immunizations Query Response on File Recorded Date/Time Hx Influenza Vaccination No 09/12/14 4:40am Hx Influenza Vaccination No 09/12/14 4:40am Vital Signs Acute Vital Signs Vital Response Date/Time Temperature (Fahrenheit) 97.8 deg F (96.8 - 99.1) 09/26/2016 8:40pm Temperature (Calculated Celsius) 36.26971 degrees C (36.0 - 37.3) 09/26/2016 8:40pm Pulse Rate (adult) 88 bpm (60 - 100) 09/26/2016 8:40pm Respiratory Rate 30 breaths/min (10 - 20) 09/26/2016 8:40pm O2 Sat by Pulse Oximetry 91 % (90 - 100) 09/26/2016 8:40pm Oxygen Flow Rate 2.00 L/min 09/26/2016 7:00pm Blood Pressure 132/83 mm Hg 09/26/2016 8:40pm Height (Feet) 5 feet 09/26/2016 5:12pm Height (Inches) 9.00 inches 09/26/2016 5:12pm Weight (Kilograms) 56.700 kg 09/26/2016 5:12pm Body Mass Index (BMI) 18.0 09/26/2016 5:12pm Results Laboratory Results Test Name Result Units Flags Reference Collection Date/Time Result Date/ Time Comments White Blood Count 6.3 T/MM3 4.5-11.0 09/26/2016 5:42pm 09/26/2016 5: 53pm Red Blood Count 4.66 M/MM3 4.50-5.90 09/26/2016 5:42pm 09/26/2016 5: 53pm Hemoglobin 15.2 GM/DL 13.5-17.5 09/26/2016 5:42pm 09/26/2016 5:53pm Hematocrit 44.1 % 41-53 09/26/2016 5:42pm 09/26/2016 5:53pm Mean Corpuscular Volume 94.6 UM3 80-100 09/26/2016 5:42pm 09/26/2016 5: 53pm Mean Corpuscular Hemoglobin 32.6 UUG 26-34 09/26/2016 5:42pm 2016 5:53pm Mean Corpuscular Hemoglobin Concent 34.5 GM/DL 31-37 09/26/2016 5:42pm 09/26/2016 5:53pm RDW Standard Deviation 43.2 FL 36.9-50.2 09/26/2016 5:42pm 09/26/2016 5 :53pm Platelet Count 197 T/MM3 130-400 09/26/2016 5:42pm 09/26/2016 5:53pm Mean Platelet Volume 8.8 UM3 L 9.4-12.4 09/26/2016 5:42pm 09/26/2016 5: 53pm Neutrophils (%) (Auto) 60.1 % 33-66 09/26/2016 5:42pm 09/26/2016 5: 53pm Lymphocytes (%) (Auto) 28.4 % 23-45 09/26/2016 5:42pm 09/26/2016 5: 53pm Monocytes (%) (Auto) 10.0 % H 0-9.0 09/26/2016 5:42pm 09/26/2016 5:53pm Eosinophils (%) (Auto) 1.1 % 0-4 09/26/2016 5:42pm 09/26/2016 5:53pm Basophils (%) (Auto) 0.2 % 0-2 09/26/2016 5:42pm 09/26/2016 5:53pm Immature Granulocyte % (Auto) 0.2 % 0.0-0.5 09/26/2016 5:42pm 2016 5:53pm Absolute Neutrophils (auto) 3.8 T/MM3 1.8-7.7 09/26/2016 5:42pm 2016 5:53pm Absolute Lymphocytes (auto) 1.8 T/MM3 1-4.8 09/26/2016 5:42pm 2016 5:53pm Absolute Monocytes (auto) 0.6 T/MM3 0-0.8 09/26/2016 5:42pm 09/26/2016 5:53pm Absolute Eosinophils (auto) 0.1 T/MM3 0-0.5 09/26/2016 5:42pm 2016 5:53pm Absolute Basophils (auto) 0.0 T/MM3 0-0.2 09/26/2016 5:42pm 09/26/2016 5:53pm Absolute Immature Granulocyte (auto 0.01 T/MM3 0.00-0.03 09/26/2016 5: 42pm 09/26/2016 5:53pm D-Dimer 294 NG/ML H 0-230 09/26/2016 5:42pm 09/26/2016 6:00pm <230 NG/ ML D-DU=PRESUMPTIVE NEGATIVE FOR PE OR DVT >230 NG/ML D-DU=ADDITIONAL EVAL FOR PE OR DVT RECOMMENDED Icterus Index < 2 0-7 09/26/2016 5:42pm 09/26/2016 6:03pm Chemistry Specimen Hemolysis < 15 0-25 09/26/2016 5:42pm 09/26/2016 6 :03pm 0-25: Specimen Exhibited No Hemolysis. Turbidity < 20 0-20 09/26/2016 5:42pm 09/26/2016 6:03pm Sodium Level 141 MEQ/L 134-144 09/26/2016 5:42pm 09/26/2016 6:03pm Potassium Level 3.8 MEQ/L 3.6-5 09/26/2016 5:42pm 09/26/2016 6:03pm Chloride Level 95 MEQ/L L 98-107 09/26/2016 5:42pm 09/26/2016 6:03pm Carbon Dioxide Level 33 MEQ/L H 22-30 09/26/2016 5:42pm 09/26/2016 6: 03pm Anion Gap 13 MEQ/L 5-15 09/26/2016 5:42pm 09/26/2016 6:03pm Blood Urea Nitrogen 16.0 MG/DL 9-20 09/26/2016 5:42pm 09/26/2016 6: 03pm Creatinine 1.0 MG/DL 0.8-1.5 09/26/2016 5:42pm 09/26/2016 6:03pm BUN/Creatinine Ratio 16 RATIO 6-26 09/26/2016 5:42pm 09/26/2016 6:03pm Glomerular Filtration Rate Calc 72 09/26/2016 5:42pm 09/26/2016 6: 03pm Glucose Level 111 MG/DL H 75-110 09/26/2016 5:42pm 09/26/2016 6:03pm Calculated Osmolality 273 MOSM/KG 261-280 09/26/2016 5:42pm 09/26/2016 6:03pm Calcium Level 9.3 MG/DL 8.4-10.2 09/26/2016 5:42pm 09/26/2016 6:03pm Total Bilirubin 1.00 MG/DL 0.20-1.30 09/26/2016 5:42pm 09/26/2016 6: 03pm Alkaline Phosphatase 113 U/L 38-126 09/26/2016 5:42pm 09/26/2016 6: 03pm Total Protein 7.1 G/DL 6.3-8.2 09/26/2016 5:42pm 09/26/2016 6:03pm Albumin 4.3 G/DL 3.5-5.0 09/26/2016 5:09/26/2016 6:03pm Globulin 2.8 G/DL 2.4-3.6 09/26/2016 5:42pm 09/26/2016 6:03pm Albumin/Globulin Ratio 1.5 RATIO 1.1-2.2 09/26/2016 5:42pm 09/26/2016 6 :03pm Aspartate Amino Transf (AST/SGOT) 22 U/L 17-59 09/26/2016 5:42pm 2016 6:03pm Alanine Aminotransferase (ALT/SGPT) 39 U/L 21-72 09/26/2016 5:42pm 6:03pm Troponin I < 0.012 ng/ml 0-0.12 09/26/2016 5:42pm 09/26/2016 6:14pm Troponin values with a difference of 55% increase from orginal troponin value represent a true biological DELTA value. (%increase Calc=Orginal Troponin value, divided by subsequent Troponin value, multiplied by 100) XK-Eon-X-Type Natriuretic Peptide 634 PG/ML H 0-175 09/26/2016 5:42pm 6:14pm Rule in cut points: <50 years old=450; 50-75 years old=900; >75 years old=1800; When utilizing ProBNP rule-in cut points, adjustment for impaired renal function is typically not required. Arterial Blood pH 7.430 7.350-7.450 09/26/2016 6:03pm 09/26/2016 6: 07pm Arterial Blood Partial Pressure CO2 51 MMHG H 34-45 09/26/2016 6:03pm 6:07pm Arterial Blood pO2 at Patient Temp 63 MMHG L 80-100 09/26/2016 6:03pm 6:07pm Arterial Blood HCO3 34 MEQ/L H 22-26 09/26/2016 6:03pm 09/26/2016 6: 07pm Arterial Blood Total CO2 35.5 MEQ/L H 23-27 09/26/2016 6:03pm 2016 6:07pm Arterial Blood Base Excess 8.2 MMOL/L H -2.0-2.0 09/26/2016 6:03pm 09/26 6:07pm Arterial Blood Oxygen Saturation 92.0 % L 95.0-98.0 09/26/2016 6:03pm 6:07pm Blood Gas Oxygen Liter Flow 2 09/26/2016 6:03pm 09/26/2016 6:07pm Oxygen Delivery Method (LAB) NASAL CANNULA,LITERS 09/26/2016 6:03pm 09/26/2016 6:07pm Adenovirus (PCR) NEGATIVE NEGATIVE 09/26/2016 6:21pm 09/26/2016 7: 59pm Coronavirus Type 229E (PCR) NEGATIVE NEGATIVE 09/26/2016 6:21pm 09/26 7:59pm Coronavirus Type HKU1 (PCR) NEGATIVE NEGATIVE 09/26/2016 6:21pm 09/26 7:59pm Coronavirus Type NL63 (PCR) NEGATIVE NEGATIVE 09/26/2016 6:pm 09/26 7:59pm Coronavirus Type OC43 (PCR) NEGATIVE NEGATIVE 09/26/2016 6:pm 09/26 7:59pm Human Metapneumovirus (PCR) NEGATIVE NEGATIVE 09/26/2016 6:pm 09/26 7:59pm Enterovirus/Rhinovirus (PCR) NEGATIVE NEGATIVE 09/26/2016 6:pm 7:59pm Influenza Virus Type A (PCR) NEGATIVE NEGATIVE 09/26/2016 6:21pm 7:59pm Influenza Virus Type B (PCR) NEGATIVE NEGATIVE 09/26/2016 6:pm 7:59pm Parainfluenza Type 1 (PCR) NEGATIVE NEGATIVE 09/26/2016 6:pm 2016 7:59pm Parainfluenza Type 2 (PCR) NEGATIVE NEGATIVE 09/26/2016 6:pm 2016 7:59pm Parainfluenza Type 3 (PCR) NEGATIVE NEGATIVE 09/26/2016 6:pm 2016 7:59pm Parainfluenza Type 4 (PCR) NEGATIVE NEGATIVE 09/26/2016 6:pm 2016 7:59pm Respiratory Syncytial Virus (PCR) NEGATIVE NEGATIVE 09/26/2016 6:pm 09/26/2016 7:59pm Bordetella parapertussis DNA (PCR) NEGATIVE NEGATIVE 09/26/2016 6: pm 09/26/2016 7:59pm Chlamydia pneumoniae DNA (PCR) NEGATIVE NEGATIVE 09/26/2016 6:pm 7:59pm Mycoplasma pneumoniae (PCR) NEGATIVE NEGATIVE 09/26/2016 6:pm 09/26 7:59pm Urine Collection Type [place] 09/26/2016 6:pm 2016 6:54pm Urine Color YELLOW YELLOW 09/26/2016 6:pm 09/26/2016 6:54pm Urine Turbidity CLEAR CLEAR 09/26/2016 6:pm 09/26/2016 6:54pm Urine Specific [place] 1.015 1.015-1.025 09/26/2016 6:pm 2016 6:54pm Urine pH 6.5 5.0-8.0 09/26/2016 6:21pm 09/26/2016 6:54pm Urine Leukocyte Esterase NEGATIVE NEGATIVE 09/26/2016 6:21pm 2016 6:54pm Urine Nitrite NEGATIVE NEGATIVE 09/26/2016 6:21pm 09/26/2016 6:54pm Urine Protein NEGATIVE NEGATIVE 09/26/2016 6:21pm 09/26/2016 6:54pm Urine Glucose (UA) NEGATIVE NEGATIVE 09/26/2016 6:21pm 09/26/2016 6: 54pm Urine Ketones NEGATIVE NEGATIVE 09/26/2016 6:21pm 09/26/2016 6:54pm Urine Urobilinogen 0.2 EU/DL NORMAL 09/26/2016 6:21pm 09/26/2016 6: 54pm Urine Bilirubin NEGATIVE NEGATIVE 09/26/2016 6:21pm 09/26/2016 6: 54pm Urine Blood NEGATIVE NEGATIVE 09/26/2016 6:21pm 09/26/2016 6:54pm Urinalysis Comment MICROSCOPIC NOT IND. 09/26/2016 6:21pm 2016 6:54pm Microbiology Results Procedure Source Organism/Result Collection Date/Time Result Date/Time Result Status Blood Culture Peripheral/Iv Start CULTURE INITIATED - RESULTS PENDING 09/26 5:45pm 09/26/2016 5:50pm Preliminary Procedures No known history of procedures. Encounters Encounter Location Arrival/Admit Date Discharge/Depart Date Attending Provider Departed Emergency Room [facility] 09/26/16 5:12pm 09/26/16 8: 40pm AMALIA GORDILLO MD Recent Diagnosis
--- NOTE | 2016-10-05 04:28 | ERPDOC ---
Departure Disposition Decision Date: October 05, 2016 Disposition Decision Time: 04:50 Disposition: 01 DISCHARGED HOME, SELF-CARE Impression Impression Impression: Primary Impression: Emphysema lung Additional Impression: Hypoxemia Severity: Severe Condition: Improved Seen By: Physician only Referrals: ANNALISA MEIER APRN (Family) Patient Instructions: COPD (Chronic Obstructive Pulmonary Disease) (ED), Reactive Airways Disease (ED) Problems/Meds/Labs Reviewed?: Yes Medications reviewed and manag: Yes Additional Instructions: DuoNeb treatment every 4-6 hours as needed via nebulizer. Prednisone 30 mg daily for 3 days, 20 mg daily for 3 days, 10 mg daily for 3 days. Smoking cessation discussed Meet with her primary care provider to set up home health with oxygen as needed. Follow up care ordered?: Yes Mental Status: Alert, Oriented Scripts Prednisone (Prednisone) 10 Mg Tablet 0 PO TAPERQD, #18 TAB 30 mg daily x3 days 20 mg daily x3 days 10 mg daily x2 days Prov: AMALIA GORDILLO MD 10/05/16 HPI - Dyspnea General Chief Complaint: Dyspnea/Respdistress Stated Complaint: DIFF BREATHING Time Seen by Provider: 04:22 HPI - Dyspnea Initial Comments 81-year-old gentleman presents via EMS with dyspnea. Patient has long-standing history of COPD/emphysema. He has had multiple workups through our ED and hospital. He actually looks much better this time that he normally does when he is brought in. He is brought in on 4 L nasal cannula, having had albuterol nebulizer and Solu-Medrol 125 mg given IV during transport by EMS. He is down to approximately 6 cigarettes per day. He states he had a pretty good day today , was up working on a trailer and relaxing in the house, felt good and was breathing well. He went to sleep and then awoke with worsening shortness of breath. This is a fairly normal occurrence for him, it continued to worsen tonight and had to call EMS. No fever or chills, no chest pain Allergies: Coded Allergies: No Known Drug Allergies (Verified Allergy, Unknown, 10/05/16) Past History Past Medical History Metabolic: hypertension Respiratory: COPD Integumentary: other Vaccines Hx Influenza Vaccination: No Social History Smoking Status: Current every day smoker Substance Use Type: does not use Record Review Pertinent history updated: Yes Review of Systems Cardiovascular Cardiac: see HPI Pulmonary Respiratory: see HPI Musculoskeletal General: see HPI All other Systems All Other Systems: Reviewed and Negative Physical Exam General General Nourishment: adult, thin, cachectic, acute distress Distress Description Acute respiratory distress. General Body Habitus: disheveled Vitals and Pain First Documented Vital Signs Date Time Temp Pulse Resp B/P Pulse Ox O2 Delivery O2 Flow Rate FiO2 10/05/16 04:12 98.0 77 18 130/94 97 Room Air Weight: Kilograms: Height (feet): 5 Height (inches): 9.00 Triage Pain Scale: Normal Exams: Abdomen: Bowel sounds positive, soft, non-tender, non-distended, no hepatosplenomegaly, masses or bruits noted Neurologic: Patient is alert, and oriented, cranial nerves, motor/sensory/ cerebellar, exams w/o gross deficits, to observation Cardiovascular (brief) Cardiac: FOUND: regular rate, regular rhythm, NOT FOUND: murmur Abdomen (brief) Abdominal Brief: FOUND: bowel normo active x4, soft, NOT FOUND: tender Differential Diagnoses Considering: Acute Respiratory Failure, CHF, COPD Exacerbation, Pneumonia, Pulmonary Edema Progress Results/Orders Orders Procedure Category Date Status Time Cmp - Comprehensive LAB 10/05/16 In Process Metabolic 04:22 Cbc W/Auto LAB 10/05/16 Complete Diff-Reflex Manual 04:22 Chest, Pa & Lateral RAD 10/05/16 Taken 04:22 Iv Lock (Ed Only) EDM 10/05/16 Transmitted 04:22 Albuterol/Ipratropium PHA 10/05/16 Complete (Duoneb) 04:30 Oxygen Administration EDM 10/05/16 Transmitted 04:22 Lab Results Laboratory Tests Test 10/05/16 04:31 White Blood Count 11.4T/MM3 Red Blood Count 4.62M/MM3 Hemoglobin 15.1GM/DL Hematocrit 45.4% Mean Corpuscular Volume 98.3UM3 Mean Corpuscular Hemoglobin 32.7UUG Mean Corpuscular Hemoglobin Concent 33.3GM/DL RDW Standard Deviation 46.8FL Platelet Count 211T/MM3 Mean Platelet Volume 9.3UM3 Immature Granulocyte % (Auto) 0.6% Neutrophils (%) (Auto) 52.3% Lymphocytes (%) (Auto) 37.2% Monocytes (%) (Auto) 8.8% Eosinophils (%) (Auto) 0.9% Basophils (%) (Auto) 0.2% Absolute Immature Granulocyte (auto 0.07T/MM3 Absolute Neutrophils (auto) 6.0T/MM3 Absolute Lymphocytes (auto) 4.3T/MM3 Absolute Monocytes (auto) 1.0T/MM3 Absolute Eosinophils (auto) 0.1T/MM3 Absolute Basophils (auto) 0.0T/MM3 Turbidity Pending Sodium Level Pending Potassium Level Pending Chloride Level Pending Carbon Dioxide Level Pending Anion Gap Pending Blood Urea Nitrogen Pending Creatinine Pending Glomerular Filtration Rate Calc Pending BUN/Creatinine Ratio Pending Glucose Level Pending Calculated Osmolality Pending Calcium Level Pending Total Bilirubin Pending Icterus Index Pending Aspartate Amino Transf (AST/SGOT) Pending Alanine Aminotransferase (ALT/SGPT) Pending Alkaline Phosphatase Pending Total Protein Pending Albumin Pending Globulin Pending Albumin/Globulin Ratio Pending Chemistry Specimen Hemolysis Pending Medications Current ED Medications Albuterol/ Ipratropium (Duoneb) 3 ml O ONCE AEROSOL ; Start 10/05/16 at 04:30; Stop 10/05/16 at 04:31; Status DC Progress Progress Patient responding well to nebulizer treatment. He does need to have his hydrochlorothiazide and prednisone refilled. We discussed that it is better to do this through his primary care provider, however I do not want to run out. I did refill him one time and anticipate he'll be able to follow-up as an outpatient through his clinic. He is responded nicely to treatments and will be discharged home. Albuterol nebulizer, DuoNeb prescription to be ordered. He is to continue with his smoking cessation program. AMALIA GORDILLO MD October 05, 2016 04:28
[2016-10-05] MEDS ORDERED: ALBUTEROL/IPRATROPIUM INHAL. 2.5mg-0.5mg/3ml Neb. AEROSOL ONE (04:30)
--- NOTE | 2016-10-05 04:35 | NUR ---
XRAY PT TO XRAY PER COT.
--- NOTE | 2016-10-05 04:43 | NUR ---
FAMILY FAMILY IN ROOM FOR PT.
--- NOTE | 2016-10-05 04:50 | NUR ---
XRAY PT RETURNED FROM XRAY.
[2016-10-05 04:51] LABS: BASOPHILS % (AUTO) 0.2 % (0-2); EOSINOPHILS # (AUTO) 0.1 T/MM3 (0-0.5); EOSINOPHILS % (AUTO) 0.9 % (0-4); HCT - HEMATOCRIT 45.4 % (41-53); HGB - HEMOGLOBIN 15.1 GM/DL (13.5-17.5); IMMATURE GRANULOCYTE # (AUTO) 0.07 T/MM3 (0.00-0.03); IMMATURE GRANULOCYTE % (AUTO) 0.6 % (0.0-0.5); LYMPHOCYTES # (AUTO) 4.3 T/MM3 (1-4.8); LYMPHOCYTES % (AUTO) 37.2 % (23-45); MEAN CORPUSCULAR HGB 32.7 UUG (26-34); MEAN CORPUSCULAR HGB CONC(MCHC 33.3 GM/DL (31-37); MEAN CORPUSCULAR VOLUME 98.3 UM3 (80-100); MEAN PLATELET VOLUME 9.3 UM3 (9.4-12.4); MONOCYTES % (AUTO) 8.8 % (0-9.0); NEUTROPHILS % (AUTO) 52.3 % (33-66); RED BLOOD COUNT 4.62 M/MM3 (4.50-5.90); WBC - WHITE BLOOD COUNT 11.4 T/MM3 (4.5-11.0)
--- NOTE | 2016-10-05 05:00 | NUR ---
PT STATUS PT STATES HE IS FEELING MUCH BETTER, HAS NOT NEEDED O2 WHILE IN THE ED. PT STATES HE IS SETTING UP AN APPOINTMENT FOR [facility] TO GET HOME O2, ALREADY HAS A NEBULIZER AT HOME. PT STATES HE FEELS LIKE HE IS READY TO GO HOME AND HIS RIDE IS WAITING FOR HIM OUTSIDE.
[2016-10-05 05:01] LABS: ALBUMIN 4.1 G/DL (3.5-5.0); ALBUMIN/GLOBULIN RATIO 1.8 RATIO (1.1-2.2); ALKALINE PHOSPHATASE 97 U/L (38-126); ALT (SGPT) 42 U/L (21-72); ANION GAP 13 MEQ/L (5-15); AST (SGOT) 45 U/L (17-59); BUN/CREATININE RATIO 22 RATIO (6-26); CALCIUM 8.8 MG/DL (8.4-10.2); CHLORIDE 98 MEQ/L (98-107); CO2 - CARBON DIOXIDE 29 MEQ/L (22-30); CREATININE 1.2 MG/DL (0.8-1.5); GLOMERULAR FILTRATION RATE 58; GLUCOSE 179 MG/DL (75-110); POTASSIUM 3.7 MEQ/L (3.6-5); SODIUM 140 MEQ/L (134-144); TOTAL PROTEIN 6.4 G/DL (6.3-8.2)
[2016-10-05] MEDS ORDERED: PRED10TA PO (05:02)
[2016-10-05 05:10] VITALS: BP 166/88; PULSE 85; RESP 18; TEMP 98; O2SAT 92
[2016-10-05] MEDS ORDERED: PredniSONE 20mg TAB #3 (PrePack) SENT HOME ONE (05:15)
--- NOTE | 2016-10-05 07:53 | DI ---
INDICATION: ITS.REASON: dyspnea PROCEDURE: CHEST 2-VIEWS UPRIGHT (PA \T\ LAT) Encounter: Initial COMPARISON: September 26, 2016 Findings: The lungs are stable in appearance without new focal airspace consolidation. Small areas of basilar scarring. Emphysema. There is no pleural effusion or pneumothorax. The heart size, pulmonary vascularity and mediastinal contours are unchanged. IMPRESSION: Stable appearance of the chest without acute cardiopulmonary disease. .
== END 2016-10-05 05:10 | disposition home or self-care (01) ==
LOC: ED 04:11
DX: J43.9 Emphysema, unspecified (principal); R09.02 Hypoxemia; F17.210 Nicotine dependence, cigarettes, uncomplicated
CPT/HCPCS: 80053; 85025; 94640

== ENCOUNTER 2016-10-22 23:30 | Inpatient (IN) ==
--- NOTE | 2016-10-22 23:51 | Emergency Department Report ---
General Adult HPI - General Chief complaint: Shortness of Breath/Dyspnea Stated complaint: Difficulty Breathing Time Seen by Provider: 10/22/16 23:45 Source: patient, EMS Mode of arrival: EMS Limitations: no limitations - History of Present Illness HPI narrative: 81-year-old male presents to the emergency department with a chief complaint of shortness of breath and productive cough. Cough is productive of yellow sputum. Patient was hypoxic at 70% on room air upon EMS arrival to his home. Patient was found to be wheezing. Patient feels like he is having a COPD exacerbation. Patient denies any current pain or discomfort. Patient is feeling improved with supplemental oxygen which he does not use at home and breathing treatments. Symptoms have been persistent in nature with improvement as noted. No other complaints or associated symptoms. - Related Data Home Medications Medication Instructions Recorded Confirmed hydroCHLOROthiazide 25 mg PO DAILY #0 08/18/11 10/23/16 [Hydrochlorothiazide] Albuterol Sulfate [Proair Hfa] 1 puff INH Q4H PRN #0 09/26/16 10/23/16 Allergies Allergy/AdvReac Type Severity Reaction Status Date / Time No Known Drug Allergies Allergy Unknown Verified 10/22/16 23:52 Review of Systems Constitutional: Denies: fever, chills Eyes: Denies: eye pain, vision change ENT: Denies: ear pain, throat pain, dental pain Cardiovascular: Denies: chest pain, dyspnea on exertion Respiratory: Reports: cough, dyspnea, wheezes. Denies: hemoptysis Gastrointestinal: Denies: abdominal pain, nausea, vomiting, diarrhea Genitourinary: Denies: urgency, dysuria Musculoskeletal: Denies: back pain, arthralgia Integumentary: Denies: erythema, rash Neurological: Denies: headache, numbness Psychiatric: Denies: anxiety, depression Endocrine: Denies: fatigue, heat or cold intolerance Hematological/Lymphatic: Denies: easy bleeding, easy bruising Allergic/Immunologic: Denies: facial swelling, urticaria PFSH Patient Stated Medical History Hypertension Yes Chronic Obstructive Pulmonary Yes Disease (COPD) Shingles Yes Surgical History: Negative. Family History: negative. - Social History Smoking status: Current every day smoker Substance use type: does not use Alcohol intake frequency: does not drink Physical Exam - Limitations Limitations: no limitations - General General appearance: alert, in no apparent distress - Normal Exams: Head:: Normocephalic without trauma Eyes:: Pupils are PERRLA w/ EOMI, No scleral icterus, irritation, or foreign bodies noted ENMT:: No facial trauma, nasal exudates, pharyngeal erythema, or exudates are noted Dental: No fractured, loose, or missing teeth noted Neck:: Full range of motion, without adenopathy, JVD, bruits or thyromegaly Chest/Respirations:: with good airflow (bilateral end expiratory wheezes.), and symmetry bilaterally Cardiovascular:: Regular rate and rhythm, without murmur or gallop, Pulses 2+ all extremities, capillary refill, <2 seconds all extremities Abdomen:: Bowel sounds positive, soft, non-tender, non-distended, no hepatosplenomegaly, masses or bruits noted Lymphatic:: No lymphadenopathy, or lymphedema noted Musculoskeletal:: No tenderness, or deformity noted, good range of motion, all extremities Integumentary:: No rashes, hives, or bruising noted, hair and nails, without abnormality Neurological:: Patient is alert, and oriented, cranial nerves, motor/sensory/ cerebellar, exams w/o gross deficits, to observation Psychiatric:: Patient exhibits, appropriate attention, emotion and affect Course Vital Signs Temperature 97.7 F 10/22/16 23:35 Pulse Rate 113 H 10/22/16 23:35 Respiratory Rate 28 H 10/22/16 23:35 Blood Pressure 145/78 H 10/22/16 23:35 Pulse Oximetry 98 10/22/16 23:35 Temperature 96.7 F L 10/23/16 15:40 Pulse Rate 90 10/23/16 15:40 Respiratory Rate 18 10/23/16 21:27 Blood Pressure 134/80 10/23/16 15:40 Pulse Oximetry 90 10/23/16 21:27 Medical Decision Making - [facility] Narrative Medical decision making narrative: Labs/imaging were discussed in detail with the patient and family waiting questions are answered. Patient is given supplemental 125 mg IV times one. He is given nebulized aerosol treatments department with improvement of symptoms. Patient is started on Levaquin intravenously in the emergency department after blood cultures and lactic acid are obtained. Patient does not meet criteria for 30 mL/kg of normal saline intravenously. Patient does not have a source of infection. Patient is admitted to the hospital in improved condition. Patient is discussed with Dr. Hernandes who is in agreement with the current plan of management. Patient service of Dr. Phelps. No further orders. Sepsis was considered at when Levaquin was ordered. - Differential Diagnosis COPD exacerbation, pneumonia, CHF, viral syndrome - Lab Data Result diagrams: 10/23/16 06:12 10/23/16 06:12 Lab Results 10/22/16 10/22/16 10/23/16 Range/Units 23:58 23:58 01:58 WBC 9.0 (4.5-11.0) T/MM3 RBC 4.34 L (4.50-5.90) M/MM3 Hgb 14.5 (13.5-17.5) GM/DL Hct 42.0 (41-53) % MCV 96.8 (80-100) UM3 MCH 33.4 (26-34) UUG MCHC 34.5 (31-37) GM/DL RDW Std Deviation 45.7 (36.9-50.2) FL Plt Count 183 (130-400) T/MM3 MPV 9.2 L (9.4-12.4) UM3 Immature Gran % (Auto) 0.2 (0.0-0.5) % Neut % (Auto) 66.8 H (33-66) % Lymph % (Auto) 23.4 (23-45) % [place] % (Auto) 8.5 (0-9.0) % Eos % (Auto) 1.0 (0-4) % Baso % (Auto) 0.1 (0-2) % Neut # 6.0 (1.8-7.7) T/MM3 Lymph # 2.1 (1-4.8) T/MM3 [place] # 0.8 (0-0.8) T/MM3 Eos # 0.1 (0-0.5) T/MM3 Baso # 0.0 (0-0.2) T/MM3 Abs Immat Gran (auto) 0.02 (0.00-0.03) T/MM3 Turbidity < 20 (0-20) Sodium 138 (134-144) MEQ/L Potassium 3.9 (3.6-5) MEQ/L Chloride 99 (98-107) MEQ/L Carbon Dioxide 27 (22-30) MEQ/L Anion Gap 12 (5-15) MEQ/L BUN 17.0 (9-20) MG/DL Creatinine 1.0 (0.8-1.5) MG/DL GFR Calculation 72 BUN/Creatinine Ratio 17 (6-26) RATIO Glucose 117 H (75-110) MG/DL Calculated Osmolality 269 (261-280) MOSM/KG Calcium 9.0 (8.4-10.2) MG/DL Total Bilirubin 0.60 (0.20-1.30) MG/DL Icterus Index < 2 (0-7) AST 49 (17-59) U/L ALT 47 (21-72) U/L Alkaline Phosphatase 104 (38-126) U/L Troponin I < 0.012 (0-0.12) ng/ml Total Protein 6.5 (6.3-8.2) G/DL Albumin 3.9 (3.5-5.0) G/DL Globulin 2.6 (2.4-3.6) G/DL Albumin/Globulin Ratio 1.5 (1.1-2.2) RATIO Plasma Lactate 1.6 (0.6-2.2) MMOL/L Procalcitonin NG/ML Specimen Hemolysis 19 (0-25) // Range/Units 01:58 WBC (4.5-11.0) T/MM3 RBC (4.50-5.90) M/MM3 Hgb (13.5-17.5) GM/DL Hct (41-53) % MCV (80-100) UM3 MCH (26-34) UUG MCHC (31-37) GM/DL RDW Std Deviation (36.9-50.2) FL Plt Count (130-400) T/MM3 MPV (9.4-12.4) UM3 Immature Gran % (Auto) (0.0-0.5) % Neut % (Auto) (33-66) % Lymph % (Auto) (23-45) % [place] % (Auto) (0-9.0) % Eos % (Auto) (0-4) % Baso % (Auto) (0-2) % Neut # (1.8-7.7) T/MM3 Lymph # (1-4.8) T/MM3 [place] # (0-0.8) T/MM3 Eos # (0-0.5) T/MM3 Baso # (0-0.2) T/MM3 Abs Immat Gran (auto) (0.00-0.03) T/MM3 Turbidity (0-20) Sodium (134-144) MEQ/L Potassium (3.6-5) MEQ/L Chloride (98-107) MEQ/L Carbon Dioxide (22-30) MEQ/L Anion Gap (5-15) MEQ/L BUN (9-20) MG/DL Creatinine (0.8-1.5) MG/DL GFR Calculation BUN/Creatinine Ratio (6-26) RATIO Glucose (75-110) MG/DL Calculated Osmolality (261-280) MOSM/KG Calcium (8.4-10.2) MG/DL Total Bilirubin (0.20-1.30) MG/DL Icterus Index (0-7) AST (17-59) U/L ALT (21-72) U/L Alkaline Phosphatase (38-126) U/L Troponin I (0-0.12) ng/ml Total Protein (6.3-8.2) G/DL Albumin (3.5-5.0) G/DL Globulin (2.4-3.6) G/DL Albumin/Globulin Ratio (1.1-2.2) RATIO Plasma Lactate (0.6-2.2) MMOL/L Procalcitonin < 0.05 NG/ML Specimen Hemolysis (0-25) - Radiology Data CXR - No acute processes. - EKG Data EKG #1 EKG results narrative: NSR. Occasional PVC. No STEMI. Incomplete right bundle branch block. 98 bpm. Disposition Clinical Impression: Acute exacerbation of chronic obstructive airways disease Disposition: 02 To [facility] Condition: Improved Time of Disposition: 02:00 (Admit. Dr. Phelps. ) - Seen By: physician
[2016-10-23] MEDS ORDERED: METHYLPREDNISOLONE SOD SUCC 125mg/2ml INJECTION IVP ONE (01:47)
[2016-10-23] MEDS ORDERED: IPRATROPIUM/ALBUTEROL 2.5mg-0.5mg/3ml NEB AEROSOL ONE (01:50)
[2016-10-23] MEDS ORDERED: LEVOFLOXACIN PREMIX 750 MG/150 ML BAG IV SCH (02:00)
[2016-10-23] MEDS ORDERED: MORPHINE SULFATE 2 MG SYRINGE IVP PRN (02:39)
[2016-10-23] MEDS: HEPARIN 5000 UNIT/ML SUB-Q SCH ×2 (03:23→10:21)
[2016-10-23] MEDS: METHYLPREDNISOLONE SOD SUCC 125mg/2ml INJECTION IVP SCH ×4 (03:27→20:25)
[2016-10-23] MEDS: IPRATROPIUM/ALBUTEROL 2.5mg-0.5mg/3ml NEB AEROSOL PRN ×4 (03:34→21:26)
--- NOTE | 2016-10-23 03:56 | History & Physical Report ---
<Shawn Hernandes - Last Filed: 10/23/16 03:48> History of Present Illness Date: 10/23/16 Chief complaint: shortness of breath HPI: Patient has a history of COPD and had an episode of coughing and became more short of breath. The patient was transported to the ED where he was found to have sats in the 70's. The patient responded to aggressive respiratory eval and treatment in the ED. He currently continues to be short of breath and will need admission for management of his exacerbation. The patient has a cough that is productive. no fever, chills or sweats. The patient is chronically short of breath but worse tonight. Review of Systems Review of systems: no headache, no change in vision, no sore throat, mild congestion, no neck or jaw pain. no chest pain, chronically short of breath but worse tonight. cough productive of colored sputum. no abdomen pain,no nausea or vomiting, no change in bowel movements, no focal neuro complaints 10 point ROS otherwise neg except for outlined above. - Constitutional Constitutional: Present: as per HPI PFSH Patient Stated Medical History Hypertension Yes Chronic Obstructive Pulmonary Yes Disease (COPD) Shingles Yes Medical History Updates: Nobles Hernandes Syndrome. chronic vertigo. HTN Surgical History: none - Social History Smoking status: Current every day smoker Substance use type: does not use Alcohol intake: former Housing: house Household members: none service: Yes (brief service, never saw combat) Current occupational status: retired Does patient use chewing tobacco?: No Current residence: Apartment/Private Home Medications Home Medications Medication Instructions Recorded Confirmed Type hydroCHLOROthiazide 25 mg PO DAILY #0 08/18/11 10/23/16 History [Hydrochlorothiazide] Albuterol Sulfate [Proair Hfa] 1 puff INH Q4H PRN #0 09/26/16 10/23/16 History Allergies Allergy/AdvReac Type Severity Reaction Status Date / Time No Known Drug Allergies Allergy Unknown Verified 10/22/16 23:52 Exam Vital Signs: Temp Pulse Resp BP Pulse Ox 95.7 F L 87 26 H 126/74 92 10/23/16 02:45 10/23/16 02:45 10/23/16 03:35 10/23/16 02:45 10/23/16 03:35 Telemetry Rhythm: Sinus Rhythm Height: 1.75 m Weight: 58.1 kg - Constitutional Present: mild distress, well nourished, average body habitus, cooperative - Routine HEENT Exam Head: Present: normocephalic, atraumatic. Absent: cushingoid faces Eye: Present: EOMI, conjunctivae pink. Absent: scleral injection ENT: Present: mucous membranes dry - Routine Neck Exam Present: supple, full ROM. Absent: swelling - Routine Respiratory Exam Comments: very diminished with scattered wheezes insp and exp - Routine Cardiovascular Exam Present: RRR - Routine Abdominal Exam Present: non distended, non tender - Routine Extremities Exam Present: edema, non tender, full ROM Comments: trace edema - Routine Skin Exam Present: intact, dry - Routine Neurological Exam Present: alert, oriented X3, CN II-XII intact Results - Labs CBC & Chem 7: 10/22/16 23:58 10/22/16 23:58 - ECG Data Tracing #1 no acute ischemic process - Imaging and Cardiology Chest x-ray Additional comments: no acute process chronic copd changes Assessment and Plan (1) COPD exacerbation Current visit: Yes Status: Acute 10/23/16 04:02 patient presents with what almost sounds like mucous plugging. He has successfully coughed up material and is breathing easier. No indication for bronchoscope at this time. IV steroids, albuterol prn, duoneb prn, inhaled steroid, ivf, reassess in am. (2) Bronchitis Current visit: Yes Status: Acute 10/23/16 04:04 will go ahead and cover with levaquin. cultures sent (3) Acute respiratory failure with hypoxia Current visit: Yes Status: Acute 10/23/16 04:04 related to mucous plugging, copd, should improve as lungs improve. might need home oxygen eval prior to discharge (4) HTN (hypertension) Current visit: Yes Status: Acute 10/23/16 04:05 adjust meds as indicated. currently good control (5) Tobacco abuse Current visit: Yes Status: Acute 10/23/16 04:05 patient needs to stop smoking. has made progess. continue to encourage. if hospital has a smoking cessation team, they need to visit with patient prior to discharge DVT Prophylaxis: SCD's, SQ Heparin GI Prophylaxis: Protonix Resuscitation Status: Full Code Sepsis Assessment - Evaluation Sepsis screening result: No Definite Risk - Focused Exam Vital Signs Temp Pulse Resp BP Pulse Ox 10/23/16 03:35 26 H 92 10/23/16 02:45 95.7 F L 87 24 126/74 91 Hospital Course Summary Disclaimer: The visit summary below is not to be considered part of the above Progress Note. <Oly Phelps - Last Filed: 10/23/16 18:07> History of Present Illness Date: 10/23/16 [facility] Patient Stated Medical History Hypertension Yes Chronic Obstructive Pulmonary Yes Disease (COPD) Shingles Yes Exam Vital Signs: Temp Pulse Resp BP Pulse Ox 96.7 F L 90 20 134/80 92 10/23/16 15:40 10/23/16 15:40 10/23/16 16:29 10/23/16 15:40 10/23/16 16:29 Height: 1.75 m Weight: 60.3 kg Results - Labs CBC & Chem 7: 10/23/16 06:12 10/23/16 06:12 Assessment and Plan (1) COPD exacerbation Current visit: Yes Status: Acute (2) Bronchitis Current visit: Yes Status: Acute (3) Acute respiratory failure with hypoxia Current visit: Yes Status: Acute (4) HTN (hypertension) Current visit: Yes Status: Acute (5) Tobacco abuse Current visit: Yes Status: Acute (6) Edema extremities Current visit: Yes Status: Acute 10/23/16 17:53 Bilateral lower extremities Assessment and Plan: Dr. Hernandes's note reviewed. Mr. Webber interviewed and examined. CC: Dyspnea HPI: Mr. Webber is an 81-year-old male with long history of COPD and tobacco abuse. He has had 4 emergency room visits in the past month complaining of cough and dyspnea. He is also seen his primary care provider at [facility] for treatment. He reports that he always gets pneumonia and that usually he gets a medicine that takes care of it right away but this time nothing has helped. Cough has been worsening over the past month with increasing dyspnea and production of thick yellow sputum. It feels just like he has in the past with had pneumonia. However he doesn't really feel sick and he' s had no fever or sweats, he just can't breathe. He also reports that he has a "water problem" with significant swelling in his lower extremities the past month although it improved overnight. He's been treated several times in the past month but nothing seems to get control of symptoms. Symptoms worsened overnight yesterday and EMS was called at which time he was found have an oxygen saturation of 71% on room air. He was transferred to the emergency room where he was found to be in moderate respiratory distress with heart rates up to 113 and respiratory rates 28-35. He was initially on a simple mask but later titrated to nasal cannula for supplemental oxygen. Patient was admitted for management of COPD exacerbation. PH/SH/FH: agree with that recorded above by Dr. Hernandes. He previously smoked 1 pack a day but has tapered down to 2-5 cigarettes daily and is trying to stop. Family history noncontributory. ROS: 10 point review as recorded above, patient reports that he hasn't cardiology appointment in the near future and that he thinks he scheduled for a treadmill stress test. EXAM: General-talkative male, cachectic, NAD. Temperature 96.7, blood pressure 134/80 HEENT-PERRL, EOMI without nystagmus, conjunctiva clear, sclera anicteric, conjugate gaze, facial structures symmetric, oropharynx clear, neck supple and without adenopathy Lungs-respirations nonlabored the time my assessment, fair airflow, breath sounds slightly coarse throughout with faint expiratory wheezes anteriorly and posteriorly Cardiac-regular rhythm, low-grade tachycardia, S1-S2 Abd-soft, nontender, without palpable mass, bowel sounds present Ext-+1 pitting edema bilateral lower extremities Skin-hyperpigmented, no generalized rash or evidence of wounds Neuro-moving all extremities well with normal motor tone/power, cranial nerves 3 -12 intact, sensation intact to light touch, no tremor Pljm-krzvymuw-hmftkvgj degenerative changes and small joints of the hands Psych-cooperative, mildly anxious DATA: Chest x-ray reviewed by myself demonstrating hyperinflated lungs without evidence of infiltrate. EKG also reviewed by myself demonstrating low voltage, sinus rhythm, poor R- wave progression, probable left atrial abnormality, right axis deviation. White count 9.0, hemoglobin 14.5, electrolytes unremarkable as are liver enzymes. Troponin unremarkable, lactic acid 1.6-2.6, procalcitonin nondetectable. A/P: COPD exacerbation-continue IV steroids, clinically improving overnight. Check respiratory viral panel, sputum culture to be obtained. Blood cultures negative overnight. Continue oral antibiotics as initiated overnight. Monitor blood sugars while on steroids. Will clarify if echocardiogram done recently given lower extremity edema. If not will pursue while hospitalized. Patient indicates edema has improved overnight, continue to monitor. Check BNP. Continue PPI for gastric prophylaxis on steroids although will convert to oral, continue heparin subcutaneous for DVT prophylaxis. Repeat lactic acid noted to be elevated-likely due to hypoxia prior to hospitalization. Sepsis Assessment - Focused Exam Vital Signs Temp Pulse Resp BP Pulse Ox 10/23/16 16:29 20 92 10/23/16 15:40 96.7 F L 90 24 134/80 91 10/23/16 12:30 22 92 10/23/16 08:00 96.9 F 95 18 129/78 92 Hospital Course Summary Disclaimer: The visit summary below is not to be considered part of the above Progress Note.
[2016-10-23] MEDS: BUDESONIDE INH.SOLN 0.5mg/2ml NEB AEROSOL SCH ×2 (08:10→21:26)
--- NOTE | 2016-10-23 08:21 | XRay Report ---
Indication: sob PROCEDURE: XR chest 1V: Encounter: Initial Comparison: October 21, 2016 Findings: The lungs are stable in appearance without new focal airspace consolidation. There is no pleural effusion or pneumothorax. The heart size, pulmonary vascularity and mediastinal contours are unchanged. IMPRESSION: Stable appearance of the chest without acute cardiopulmonary disease. .
[2016-10-23] MEDS ORDERED: PANTOPRAZOLE 40 MG INJECTION IVP SCH (09:00)
[2016-10-23] MEDS: LEVOFLOXACIN PREMIX 500 MG/100 ML BAG IV SCH (10:07)
[2016-10-23] MEDS: ALBUTEROL 2.5mg/3ml (0.083%) NEB AEROSOL PRN (16:28)
[2016-10-23] MEDS: HEPARIN SUB-Q 5,000 UNITS/0.5 ML INJECTION SQ SCH (18:29)
[2016-10-24] MEDS: HEPARIN SUB-Q 5,000 UNITS/0.5 ML INJECTION SQ SCH ×3 (03:00→18:29)
[2016-10-24] MEDS: METHYLPREDNISOLONE SOD SUCC 125mg/2ml INJECTION IVP SCH ×4 (03:01→20:34)
[2016-10-24] MEDS: ACETAMINOPHEN 325 MG TABLET PO PRN ×2 (03:08→14:19)
[2016-10-24] MEDS: OMEPRAZOLE 20 MG CAPSULE PO SCH (05:46)
[2016-10-24] MEDS: LEVOFLOXACIN PREMIX 500 MG/100 ML BAG IV SCH (09:52)
[2016-10-24] MEDS: BUDESONIDE INH.SOLN 0.5mg/2ml NEB AEROSOL SCH ×3 (13:38→20:16)
[2016-10-24] MEDS: IPRATROPIUM/ALBUTEROL 2.5mg-0.5mg/3ml NEB AEROSOL PRN ×2 (13:42→20:16)
[2016-10-24] MEDS ORDERED: NS FLUSH BAG 500ml IV PRN (14:15)
[2016-10-24] MEDS: SALINE FLUSH 10ml SYRINGE IV PRN (14:20)
--- NOTE | 2016-10-24 17:05 | Progress Note ---
Subjective: Mr. Webber reports he felt better this morning but has had several "little attacks" of dyspnea and cough after showering this afternoon. He was able to walk short distance earlier today without lightheadedness; physical therapy notes the patient had to take frequent breaks to catch his breath while walking and that he desaturated with exercise. He reports having some achiness in his vertebrae which is chronic and a mild headache but no chest pain, palpitations, nausea, or difficulty urinating. Nursing reports patient's oxygen saturation dropped slightly for brief period with activity in the room. Objective Vital signs: Temp Pulse Resp BP Pulse Ox 95.7 F L 85 24 138/87 93 10/24/16 16:40 10/24/16 16:40 10/24/16 16:40 10/24/16 16:40 10/24/16 16:40 EXAM General-NAD, alert, very talkative, cachectic with temporal wasting; currently on room air. Ambulating oxygen saturation dropped to 85% on room air. HEENT-conjunctiva clear, EOMI, oropharynx clear Lungs-respirations nonlabored on my arrival although as he talked more respiratory rate increased, breath sounds are clear but diminished throughout. Cardiac-regular rhythm, S1 and S2 Abd-soft, nontender, bowel sounds present Ext-trace edema bilateral lower extremities, minor clubbing of the digits Neuro-moving all extremities well Psych-hyperverbal but pleasant - Weight: 58.5 kg Results - Labs CBC & Chem 7: 10/24/16 05:07 10/24/16 05:07 Labs: Accu-Cheks 118-154 BNP 8360 Respiratory viral panel negative Sputum culture pending, Gram stain with few neutrophils but moderate epithelial cells Blood cultures 2 negative after 1 day. Assessment and Plan (1) COPD exacerbation Current visit: Yes Status: Acute (2) Bronchitis Current visit: Yes Status: Acute (3) Acute respiratory failure with hypoxia Current visit: Yes Status: Acute (4) HTN (hypertension) Current visit: Yes Status: Acute (5) Tobacco abuse Current visit: Yes Status: Acute (6) Edema extremities Current visit: Yes Status: Acute 10/23/16 17:53 Bilateral lower extremities Assessment and Plan: A/P: COPD exacerbation- convert to oral steroids in a.m., clinically improving, on room air currently but desaturates with activity. No indication of infectious trigger by available data. Continue oral antibiotics empirically. BNP significantly elevated however chest x-ray not compatible with CHF, patient describes preceding lower extremity edema which is improving. May well have pulmonary hypertension due to lung disease; recently saw Dr. Guevara and missed follow-up appointment for echocardiogram-Will obtain at this time. Blood sugars unremarkable-discontinue. Exertional hypoxia as above, reassess prior to discharge to determine if home oxygen needed. Will also need overnight oximetry prior to discharge. Sepsis Assessment - Evaluation Sepsis screening result: No Definite Risk - Focused Exam Vital Signs Temp Pulse Resp BP Pulse Ox 10/24/16 16:40 95.7 F L 85 24 138/87 93 10/24/16 13:40 20 90 10/24/16 07:47 96.3 F L 81 20 139/85 91 Cardiovascular exam: Present: RRR Hospital Course Summary Disclaimer: The visit summary below is not to be considered part of the above Progress Note. Hospital Course: 10/24/16 17:18 COPD exacerbation- convert to oral steroids in a.m., clinically improving, on room air currently but desaturates with activity. No indication of infectious trigger by available data. Continue oral antibiotics empirically. BNP significantly elevated however chest x-ray not compatible with CHF, patient describes preceding lower extremity edema which is improving. May well have pulmonary hypertension due to lung disease; recently saw Dr. Guevara and missed follow-up appointment for echocardiogram-Will obtain at this time. Blood sugars unremarkable-discontinue. Exertional hypoxia as above, reassess prior to discharge to determine if home oxygen needed. Will also need overnight oximetry prior to discharge.
[2016-10-24] MEDS: ALBUTEROL 2.5mg/3ml (0.083%) NEB AEROSOL PRN ×2 (17:26)
--- NOTE | 2016-10-24 20:37 | Echocardiogram ---
DATE OF SERVICE 10/24/2016 INDICATIONS Hypoxemia, dyspnea. TECHNICAL QUALITY Technically good 2D, M-mode, Doppler echocardiographic images were submitted for interpretation. FINDINGS 1. CARDIAC CHAMBERS: Left-sided cardiac chambers are normal in size. Left atrium measured 2.5 cm. Right ventricle is mildly dilated and appears hypokinetic. Aortic root diameter is normal. 2. LEFT VENTRICLE: Wall thickness is normal. Wall motion analysis shows septal hypokinesis. LV systolic function appears preserved. Ejection fraction is visually estimated at about 55%. Measured EF 61%. There is an interventricular septal balance present due to pulmonary hypertension. 3. VALVES: Aortic valve structure and motion appear normal. Normal valve excursion. Mitral valve leaflets appear thickened with mild bileaflet prolapse. There is mitral annular calcification, heavy anteriorly. Present valve opening is normal. Tricuspid valve leaflets exhibit mild thickening. Valve excursion is normal. Pulmonary valve structure and motion appear normal. Normal valve excursion. 4. DOPPLER: Doppler shows up to moderate mitral regurgitation. Eccentric directed posteriorly. Severe tricuspid regurgitation. Mild aortic regurgitation. Mild pulmonic insufficiency. Peak flow velocities are normal throughout. Diastolic dysfunction grade 1/4 is present. E/A ratio is 0.8. E/ e prime ratio is 17.5. 5. No evidence of pericardial effusion, intracardiac masses, or demonstrable shunt. IMPRESSION 1. Mild RV enlargement with marked hypokinesis. 2. Normal LV size and systolic function. EF of 55%. 3. Mild diastolic dysfunction. 4. Severe pulmonary hypertension. Systolic PA pressure estimated at 71 mmHg. 5. Severe tricuspid regurgitation. 6. Up to moderate mitral regurgitation. 7. Central venous pressure is estimated to be mildly elevated. 8. No evidence of pericardial effusion, intracardiac masses, or demonstrable shunts. [facility]
[2016-10-25] MEDS: SALINE FLUSH 10ml SYRINGE IV PRN (03:33)
[2016-10-25] MEDS: HEPARIN SUB-Q 5,000 UNITS/0.5 ML INJECTION SQ SCH ×3 (03:33→11:16)
[2016-10-25] MEDS: METHYLPREDNISOLONE SOD SUCC 125mg/2ml INJECTION IVP SCH (03:35)
[2016-10-25] MEDS: ALBUTEROL 2.5mg/3ml (0.083%) NEB AEROSOL PRN ×2 (04:00→13:39)
[2016-10-25] MEDS: LEVOFLOXACIN 500 MG TABLET PO SCH (06:11)
[2016-10-25] MEDS: OMEPRAZOLE 20 MG CAPSULE PO SCH (06:11)
[2016-10-25] MEDS: PredniSONE 20 MG TABLET PO SCH (08:05)
--- NOTE | 2016-10-25 08:44 | XRay Report ---
INDICATION: COPD exacerbation PROCEDURE: CHEST 2-VIEWS UPRIGHT (PA & LAT) Encounter: Initial COMPARISON: October 23, 2016 Findings: The lungs are stable in appearance without new focal airspace consolidation. Trace pleural effusions. No pneumothorax. The heart size, pulmonary vascularity and mediastinal contours are unchanged. IMPRESSION: Trace pleural effusions. No focal pneumonia. .
[2016-10-25] MEDS: BUDESONIDE INH.SOLN 0.5mg/2ml NEB AEROSOL SCH ×2 (11:00→21:30)
[2016-10-25] MEDS: IPRATROPIUM/ALBUTEROL 2.5mg-0.5mg/3ml NEB AEROSOL PRN (11:02)
[2016-10-25] MEDS ORDERED: ALPRAZolam 0.25 MG TABLET PO PRN (11:07)
[2016-10-25] MEDS: SODIUM CL 3% INHAL.SOLN 15ml NEB AEROSOL SCH ×2 (11:29→21:30)
[2016-10-25] MEDS ORDERED: ALPRAZolam 0.5 MG TABLET PO PRN (11:45)
[2016-10-25] MEDS: ENOXAPARIN 40 MG/0.4 ML INJECTION SQ SCH (12:15)
[2016-10-25] MEDS ORDERED: ACETAMINOPHEN 325 MG TABLET PO PRN (14:28)
[2016-10-25] MEDS ORDERED: ALBUTEROL 2.5mg/3ml (0.083%) NEB AEROSOL PRN (14:29)
--- NOTE | 2016-10-25 15:13 | Progress Note ---
<Karmen Miner - Last Filed: 10/25/16 15:10> Subjective: Mr. Corbin is doing better overall. He told me what Dr. Phelps has taught him about his lungs getting tight, which causes him to have problems breathing and prevents him from coughing anything up. He also told me that one of his valves is just a little leaky and that's causing swelling in his legs. Otherwise, he tells me, he has a good strong heart. He prefers to keep his feet in the dependent position because if he elevates them (like he has been instructed) he has trouble breathing. 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 Objective Vital signs: Temp Pulse Resp BP Pulse Ox 96.9 F 86 20 150/99 H 95 10/25/16 07:02 10/25/16 07:02 10/25/16 13:40 10/25/16 07:02 10/25/16 13:40 Weight: 59 kg - Constitutional Present: mild distress, well nourished, average body habitus, cooperative - Routine HEENT Exam ENT: Present: mucous membranes moist, oropharynx clear (no thrush seen). Absent : dentition normal (multiple decayed teeth) - Routine Respiratory Exam Present: wheezes (mild wheezing), diminished air movement - Routine Cardiovascular Exam Present: S1, S2 - Routine Abdominal Exam Present: soft, normoactive bowel sounds, non distended, non tender - Routine Extremities Exam Present: edema (trace BLE), pulses intact - Routine Musculoskeletal Exam Musculoskeletal: no joint swelling, no tenderness - Routine Skin Exam Present: intact, dry, warm Comments: very jean to face, chest, back multiple keratotic lesions on face/scalp - Routine Neurological Exam Present: alert, oriented X3, vision grossly intact, hearing grossly intact - Routine Psychiatric Exam Present: normal affect, normal thought process Results - Labs CBC & Chem 7: 10/25/16 04:40 10/25/16 04:40 Assessment and Plan (1) COPD exacerbation Current visit: Yes Status: Acute 10/23/16 04:02 patient presents with what almost sounds like mucous plugging. He has successfully coughed up material and is breathing easier. No indication for bronchoscope at this time. IV steroids, albuterol prn, duoneb prn, inhaled steroid, ivf, reassess in am. (2) Bronchitis Current visit: Yes Status: Acute 10/23/16 04:04 will go ahead and cover with levaquin. cultures sent (3) Acute respiratory failure with hypoxia Current visit: Yes Status: Acute 10/23/16 04:04 related to mucous plugging, copd, should improve as lungs improve. might need home oxygen eval prior to discharge (4) HTN (hypertension) Current visit: Yes Status: Acute 10/23/16 04:05 adjust meds as indicated. currently good control (5) Tobacco abuse Current visit: Yes Status: Acute 10/23/16 04:05 patient needs to stop smoking. has made progess. continue to encourage. if hospital has a smoking cessation team, they need to visit with patient prior to discharge (6) Edema extremities Current visit: Yes Status: Acute 10/23/16 17:53 Bilateral lower extremities Assessment and Plan: COPD exacerbation -changed to oral steroids today -currently requiring oxygen -Continue Levaquin -CXR - trace pleural effusions; no pneumonia -need Overnight oximetry prior to discharge -continue supportive care Echocardiogram: IMPRESSION 1. Mild RV enlargement with marked hypokinesis. 2. Normal LV size and systolic function. EF of 55%. 3. Mild diastolic dysfunction. 4. Severe pulmonary hypertension. Systolic PA pressure estimated at 71 mmHg. 5. Severe tricuspid regurgitation. 6. Up to moderate mitral regurgitation. 7. Central venous pressure is estimated to be mildly elevated. 8. No evidence of pericardial effusion, intracardiac masses, or demonstrable shunts. Discussed with Dr. Phelps. Would benefit from pulmonary f/u. Sepsis Assessment - Evaluation Sepsis screening result: No Definite Risk - Focused Exam Vital Signs Temp Pulse Resp BP Pulse Ox 10/25/16 13:40 20 95 10/25/16 11:32 24 10/25/16 11:03 20 94 10/25/16 07:02 96.9 F 86 22 150/99 H 91 10/25/16 04:00 20 94 Cardiovascular exam: Present: RRR Hospital Course Summary Disclaimer: The visit summary below is not to be considered part of the above Progress Note. Hospital Course: 10/24/16 17:18 COPD exacerbation- convert to oral steroids in a.m., clinically improving, on room air currently but desaturates with activity. No indication of infectious trigger by available data. Continue oral antibiotics empirically. BNP significantly elevated however chest x-ray not compatible with CHF, patient describes preceding lower extremity edema which is improving. May well have pulmonary hypertension due to lung disease; recently saw Dr. Guevara and missed follow-up appointment for echocardiogram-Will obtain at this time. Blood sugars unremarkable-discontinue. Exertional hypoxia as above, reassess prior to discharge to determine if home oxygen needed. Will also need overnight oximetry prior to discharge. 10/25/16 15:27 COPD exacerbation -changed to oral steroids today -currently requiring oxygen -Continue Levaquin -CXR - trace pleural effusions; no pneumonia -need Overnight oximetry prior to discharge -continue supportive care Echocardiogram: IMPRESSION 1. Mild RV enlargement with marked hypokinesis. 2. Normal LV size and systolic function. EF of 55%. 3. Mild diastolic dysfunction. 4. Severe pulmonary hypertension. Systolic PA pressure estimated at 71 mmHg. 5. Severe tricuspid regurgitation. 6. Up to moderate mitral regurgitation. 7. Central venous pressure is estimated to be mildly elevated. 8. No evidence of pericardial effusion, intracardiac masses, or demonstrable shunts. Discussed with Dr. Phelps. Would benefit from pulmonary f/u. <Oly Phelps - Last Filed: 10/25/16 16:39> Objective Vital signs: Temp Pulse Resp BP Pulse Ox 96.9 F 86 20 150/99 H 95 10/25/16 07:02 10/25/16 07:02 10/25/16 13:40 10/25/16 07:02 10/25/16 13:40 Results - Labs CBC & Chem 7: 10/25/16 04:40 10/25/16 04:40 Assessment and Plan (1) COPD exacerbation Current visit: Yes Status: Acute (2) Bronchitis Current visit: Yes Status: Acute (3) Acute respiratory failure with hypoxia Current visit: Yes Status: Acute (4) HTN (hypertension) Current visit: Yes Status: Acute (5) Tobacco abuse Current visit: Yes Status: Acute (6) Edema extremities Current visit: Yes Status: Acute (7) Pulmonary hypertension Problem details: PAP 71-severe Current visit: Yes Status: Chronic (8) Tricuspid regurgitation Problem details: Severe TR by echo 10/24/16 Current visit: Yes Status: Acute Assessment and Plan: I have independently evaluated and examined this patient. I reviewed the chart, the patient's history, and the SEE SUPERVISOR's documented findings as above. We discussed and formulated the assessment and plan as above with additions as below: Mr. Webber reports exertional dyspnea with any movement and that he feels like he has secretions that he can't cough up. He also complains of constipation. He has not had fever or lightheadedness. He denied chest pain or palpitations. Patient remains hyperverbal and is in no distress at rest. Respirations are nonlabored at rest he becomes mildly to Repositioning himself in bed. Breath sounds are diminished throughout with faint exertional wheezes present. There is trace peripheral edema in the dependent calves, significantly improved from admission. Echo discussed with Dr. Guevara yesterday evening. Labs notable only for slight increase in HCO3 on chemistries-check ABG in a.m. Today's chest x-ray reviewed by myself-hyperinflated but no infiltrate/failure. Needs nocturnal oximetry and will require ambulatory oximetry prior to discharge as exertional hypoxia has been noted on several occasions. Would benefit from pulmonary rehabilitation. I would like to refer him to Dr. Zee when he opens his clinic this summer. The patient indicates that he has tried Advair and possibly Spiriva in the past and that they don't help him. Has significant knowledge deficits regarding his lung disease. Hypertonic saline added to breathing treatments twice daily. May benefit from long-acting beta/Spiriva at discharge. Senokot initiated, Dulcolax suppositories/milk of magnesia added if needed for constipation. Sepsis Assessment - Focused Exam Vital Signs Temp Pulse Resp BP Pulse Ox 10/25/16 13:40 20 95 10/25/16 11:32 24 10/25/16 11:03 20 94 10/25/16 07:02 96.9 F 86 22 150/99 H 91 Hospital Course Summary Disclaimer: The visit summary below is not to be considered part of the above Progress Note.
[2016-10-25] MEDS: IPRATROPIUM/ALBUTEROL 2.5mg-0.5mg/3ml NEB AEROSOL SCH ×2 (16:27→21:30)
[2016-10-25] MEDS ORDERED: BISACODYL 10 MG SUPPOSITORY RECTALLY PRN (16:30)
[2016-10-25] MEDS: SENNA + DOCUSATE TABLET PO SCH (20:30)
[2016-10-26] MEDS: IPRATROPIUM/ALBUTEROL 2.5mg-0.5mg/3ml NEB AEROSOL SCH ×5 (03:03→21:12)
[2016-10-26] MEDS: LEVOFLOXACIN 500 MG TABLET PO SCH (05:39)
[2016-10-26] MEDS: OMEPRAZOLE 20 MG CAPSULE PO SCH (05:39)
[2016-10-26] MEDS: ENOXAPARIN 40 MG/0.4 ML INJECTION SQ SCH (08:40)
[2016-10-26] MEDS: PredniSONE 20 MG TABLET PO SCH (08:40)
[2016-10-26] MEDS: SENNA + DOCUSATE TABLET PO SCH ×2 (08:40→20:47)
[2016-10-26] MEDS: BUDESONIDE INH.SOLN 0.5mg/2ml NEB AEROSOL SCH ×2 (09:04→21:12)
[2016-10-26] MEDS: SODIUM CL 3% INHAL.SOLN 15ml NEB AEROSOL SCH ×2 (09:05→21:12)
--- NOTE | 2016-10-26 18:34 | Progress Note ---
Subjective: Mr. Webber complained of only minor dyspnea and minor wheezing today. Cough is improved significantly. He denied chest pain or palpitations and has had no nausea or vomiting. He continues to have minor abdominal bloating but reports having a good bowel movement earlier and feels better. He's had no fever, chills , or lightheadedness. He is eating well and slept well last night. Overnight oximetry was initiated on room air but oxygen was started about 2 AM due to persistent/recurrent hypoxia. Objective Vital signs: Temp Pulse Resp BP Pulse Ox 97.1 F 85 18 142/82 H 95 10/26/16 16:07 10/26/16 16:07 10/26/16 16:07 10/26/16 16:07 10/26/16 16:07 EXAM General-NAD, alert, talkative as always, on 2 L by nasal cannula; 88% on room air earlier today HEENT-conjunctiva clear, oropharynx clear Lungs-respirations nonlabored, decreased breath sounds throughout, no wheezing Cardiac-regular rhythm, S1-S2 Abd-soft, nontender, bowel sounds present Ext-+1 edema bilateral dorsal feet Neuro-moving all extremities well Psych-cooperative, pleasant - Weight: 58.2 kg Results - Labs CBC & Chem 7: 10/25/16 04:40 10/26/16 04:58 Labs: Segs 89, bands 1, leukocytes 6, monocytes 3, eosinophil 1 Blood gas 7.43/77/78/31 96% on 2 L supplemental oxygen Sputum normal antione - ABG Interpretation Attestation: I reviewed and interpreted this ABG. ABG results: 10/26/16 06:43 ABG pH 7.432 ABG pCO2 47 H ABG pO2 78 L ABG HCO3 31 H ABG Total CO2 33 H ABG O2 Saturation 96.0 ABG Base Excess 6.0 H Interpretation: other (chronic mixed/compensated respiratory/metabolic acidosis with hypoxia) - Imaging and Cardiology overnight oximetry Status: image reviewed by me Assessment and Plan (1) COPD exacerbation Current visit: Yes Status: Acute (2) Bronchitis Current visit: Yes Status: Acute (3) Acute respiratory failure with hypoxia Current visit: Yes Status: Acute (4) HTN (hypertension) Current visit: Yes Status: Acute (5) Tobacco abuse Current visit: Yes Status: Acute (6) Edema extremities Current visit: Yes Status: Acute (7) Pulmonary hypertension Problem details: PAP 71-severe Current visit: Yes Status: Chronic (8) Tricuspid regurgitation Problem details: Severe TR by echo 10/24/16 Current visit: Yes Status: Acute Assessment and Plan: Acute respiratory symptoms are improving progressively; approaching discharge which I anticipate will occur tomorrow. The patient will require supplemental oxygen at night at a minimum, room air saturation 88% earlier today suggest need for continuous oxygen. Ambulatory oximetry to be obtained today to better assess O2 demand with activities. Case management aware of oxygen need and supplier has been contacted to coordinate oxygen for discharge. Patient reports he's discontinued tobacco use, encouraged to continue tobacco free lifestyle. The patient has a nebulizer for home use but will benefit from a longer acting therapy at discharge. Spiriva being initiated. Additionally believe patient would benefit from pulmonary follow-up which could be coordinated with Dr. Berry when when his clinic opens next month. Discussed with respiratory therapy and case management, laboratory data reviewed , overnight oximetry reviewed by myself. As always-disregard following sepsis exam, auto populating due to electronic record malfunction. Sepsis Assessment - Evaluation Sepsis screening result: No Definite Risk - Focused Exam Vital Signs Temp Pulse Resp BP Pulse Ox 10/26/16 16:07 97.1 F 85 18 142/82 H 95 10/26/16 14:48 22 96 10/26/16 09:09 16 93 10/26/16 07:28 96.5 F L 58 L 20 119/84 95 Respiratory exam: Present: wheezes (mild wheezing), diminished air movement Cardiovascular exam: Present: RRR Hospital Course Summary Disclaimer: The visit summary below is not to be considered part of the above Progress Note. Hospital Course: 10/24/16 17:18 COPD exacerbation- convert to oral steroids in a.m., clinically improving, on room air currently but desaturates with activity. No indication of infectious trigger by available data. Continue oral antibiotics empirically. BNP significantly elevated however chest x-ray not compatible with CHF, patient describes preceding lower extremity edema which is improving. May well have pulmonary hypertension due to lung disease; recently saw Dr. Guevara and missed follow-up appointment for echocardiogram-Will obtain at this time. Blood sugars unremarkable-discontinue. Exertional hypoxia as above, reassess prior to discharge to determine if home oxygen needed. Will also need overnight oximetry prior to discharge. 10/25/16 15:27 COPD exacerbation -changed to oral steroids today -currently requiring oxygen -Continue Levaquin -CXR - trace pleural effusions; no pneumonia -need Overnight oximetry prior to discharge -continue supportive care Echocardiogram: IMPRESSION 1. Mild RV enlargement with marked hypokinesis. 2. Normal LV size and systolic function. EF of 55%. 3. Mild diastolic dysfunction. 4. Severe pulmonary hypertension. Systolic PA pressure estimated at 71 mmHg. 5. Severe tricuspid regurgitation. 6. Up to moderate mitral regurgitation. 7. Central venous pressure is estimated to be mildly elevated. 8. No evidence of pericardial effusion, intracardiac masses, or demonstrable shunts. 10/26/16 18:47 Acute respiratory symptoms are improving progressively; approaching discharge which I anticipate will occur tomorrow. The patient will require supplemental oxygen at night at a minimum, room air saturation 88% earlier today suggest need for continuous oxygen. Ambulatory oximetry to be obtained today to better assess O2 demand with activities. Case management aware of oxygen need and supplier has been contacted to coordinate oxygen for discharge. Patient reports he's discontinued tobacco use, encouraged to continue tobacco free lifestyle. The patient has a nebulizer for home use but will benefit from a longer acting therapy at discharge. Spiriva being initiated. Additionally believe patient would benefit from pulmonary follow-up which could be coordinated with Dr. Berry when when his clinic opens next month.
[2016-10-26] MEDS: SALINE FLUSH 10ml SYRINGE IV PRN (20:47)
[2016-10-27] MEDS: IPRATROPIUM/ALBUTEROL 2.5mg-0.5mg/3ml NEB AEROSOL SCH ×2 (03:11→09:31)
[2016-10-27] MEDS: OMEPRAZOLE 20 MG CAPSULE PO SCH (06:06)
[2016-10-27] MEDS: LEVOFLOXACIN 500 MG TABLET PO SCH (06:06)
--- NOTE | 2016-10-27 08:55 | Discharge Summary ---
<Reshma Kincaid - Last Filed: 10/27/16 08:52> Discharge Information Date of admission: 10/23/16 02:43 Anticipated date of discharge: 10/27/16 Attending Physician: Oly Phelps MD Primary care physician: Amanda Silverio, FARM ASSISTANT - Discharge Diagnosis (1) COPD exacerbation Status: Acute (2) Bronchitis Status: Acute (3) Acute respiratory failure with hypoxia Status: Acute (4) HTN (hypertension) Status: Chronic (5) Tobacco abuse Status: Chronic (6) Edema extremities Status: Resolved (7) Pulmonary hypertension Problem Details: PAP 71-severe Status: Chronic (8) Tricuspid regurgitation Qualifiers: Cardiac valve disease etiology: etiology unspecified 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 CXR: trace plural effusion; no focal pneumonia. 10/24/16. Echocardiogram: 1. Mild RV enlargement with marked hypokinesis. 2. Normal LV size and systolic function. EF of 55%. 3. Mild diastolic dysfunction. 4. Severe pulmonary hypertension. Systolic PA pressure estimated at 71 mmHg. 5. Severe tricuspid regurgitation. 6. Up to moderate mitral regurgitation. 7. Central venous pressure is estimated to be mildly elevated. 8. No evidence of pericardial effusion, intracardiac masses, or demonstrable shunts. 10/22/16. CXR: stable chest without signs of acute cardiopulmonary disease. History of Present Illness HPI: CC: Dyspnea HPI: Mr. Webber is an 81-year-old male with long history of COPD and tobacco abuse. He has had 4 emergency room visits in the past month complaining of cough and dyspnea. [facility] is also [facility] He reports that he always gets pneumonia and that usually he gets a medicine that takes care of it right away but this time nothing has helped. Cough has been worsening over the past month with increasing dyspnea and production of thick yellow sputum. It feels just like he has in the past with had pneumonia. However he doesn't really feel sick and he' s had no fever or sweats, he just can't breathe. He also reports that he has a "water problem" with significant swelling in his lower extremities the past month although it improved overnight. He's been treated several times in the past month but nothing seems to get control of symptoms. Symptoms worsened overnight yesterday and EMS was called at which time he was found have an oxygen saturation of 71% on room air. He was transferred to the emergency room where he was found to be in moderate respiratory distress with heart rates up to 113 and respiratory rates 28-35. He was initially on a simple mask but later titrated to nasal cannula for supplemental oxygen. Patient was admitted for management of COPD exacerbation. PH/SH/FH: He previously smoked 1 pack a day but has tapered down to 2-5 cigarettes daily and is trying to stop. Family history noncontributory. ROS: 10 point review as recorded above, patient reports that he hasn't cardiology appointment in the near future and that he thinks he scheduled for a treadmill stress test. Hospital Course Hospital course: 10/24/16 17:18 COPD exacerbation- convert to oral steroids in a.m., clinically improving, on room air currently but desaturates with activity. No indication of infectious trigger by available data. Continue oral antibiotics empirically. BNP significantly elevated however chest x-ray not compatible with CHF, patient describes preceding lower extremity edema which is improving. May well have pulmonary hypertension due to lung disease; recently saw Dr. Guevara and missed follow-up appointment for echocardiogram-Will obtain at this time. Blood sugars unremarkable-discontinue. Exertional hypoxia as above, reassess prior to discharge to determine if home oxygen needed. Will also need overnight oximetry prior to discharge. 10/25/16 15:27 COPD exacerbation -changed to oral steroids today -currently requiring oxygen -Continue Levaquin -CXR - trace pleural effusions; no pneumonia -need Overnight oximetry prior to discharge -continue supportive care Echocardiogram: IMPRESSION 1. Mild RV enlargement with marked hypokinesis. 2. Normal LV size and systolic function. EF of 55%. 3. Mild diastolic dysfunction. 4. Severe pulmonary hypertension. Systolic PA pressure estimated at 71 mmHg. 5. Severe tricuspid regurgitation. 6. Up to moderate mitral regurgitation. 7. Central venous pressure is estimated to be mildly elevated. 8. No evidence of pericardial effusion, intracardiac masses, or demonstrable shunts. 10/26/16 18:47 Acute respiratory symptoms are improving progressively; approaching discharge which I anticipate will occur tomorrow. The patient will require supplemental oxygen at night at a minimum, room air saturation 88% earlier today suggest need for continuous oxygen. Ambulatory oximetry to be obtained today to better assess O2 demand with activities. Case management aware of oxygen need and supplier has been contacted to coordinate oxygen for discharge. Patient reports he's discontinued tobacco use, encouraged to continue tobacco free lifestyle. The patient has a nebulizer for home use but will benefit from a longer acting therapy at discharge. Spiriva being initiated. Additionally believe patient would benefit from pulmonary follow-up which could be coordinated with Dr. Berry when when his clinic opens next month. 10/27/16 9:01 Overall, Mr. Webber states that he is feeling better and is ready for discharge home. He continues admits to feeling slightly short of breath and wheezy this morning but states that he thinks it is more to do with becoming deconditioned after being the hospital for the past few days. He states that he has been approved for home oxygen and feels prepared to use it at home. Discussed home situation and he admits to living with his son and [id number] and feels safe returning home. Continued to encouraged cessation of tobacco. Spiriva was initiated yesterday and will continue as outpatient. Will discuss setting up a follow up appointment with Dr. Berry, pul, for further evaluation and treatment as an outpatient. Patient also requests name of stool softeners used in hospital so he can use them for home for bowel motivation. Will continue prednisone 40mg po x 5 days (DC on 10/31/16) and RX will be provided. Will continue oral levaquin for empiric antimicrobial treatment until 09/28/16 and RX will be provided. Vital signs and labs stable. DVT Prophylaxis: SCD's, Lovenox GI Prophylaxis: other (Prilosec) Discharge Plan - Med Rec/Dispo Referrals/Follow Up: Pito Zee MD [Physician] - 3 Days (schedule follow up for soonest appointment for pulmonary care and evaluation.) Amanda Silverio, ANNIKA [Family Provider] - 3 Days (Follow up for routine care. Patient to call to schedule.) Prescriptions: New Albuterol/Ipratropium [Duoneb] 3 ml AEROSOL Q6H #120 ampul Levofloxacin [Levaquin] 500 mg PO ACB #2 tab Omeprazole [Prilosec] 20 mg PO ACB #30 cap Senna + Docusate [Senna Plus Tablet] 2 tab PO BID Tiotropium [place] [Spiriva] 1 cap ORAL INH DAILY #1 inhaler Acetaminophen [Tylenol] 325 mg PO Q5H PRN PRN Reason: Discomfort Bisacodyl Supp [Dulcolax] 10 mg RECTALLY DAILY PRN supp PRN Reason: Constipation PredniSONE [Deltasone] 40 mg PO WB #5 tab Continue Albuterol Sulfate [Proair Hfa] 1 puff INH Q4H PRN #0 PRN Reason: PRN ORDERS hydroCHLOROthiazide [Hydrochlorothiazide] 25 mg PO DAILY #0 - Disposition 01 Discharged Home, Self-Care <Carter Lopez - Last Filed: 10/27/16 14:57> Discharge Information Date of admission: 10/23/16 02:43 Attending Physician: Oly Phelps MD Primary care physician: Amanda Silverio, FARM ASSISTANT - Discharge Diagnosis (1) COPD exacerbation Status: Acute (2) Bronchitis Status: Acute (3) Acute respiratory failure with hypoxia Status: Acute (4) HTN (hypertension) Status: Chronic (5) Tobacco abuse Status: Chronic (6) Edema extremities Status: Resolved (7) Pulmonary hypertension Problem Details: PAP 71-severe Status: Chronic (8) Tricuspid regurgitation Qualifiers: Cardiac valve disease etiology: etiology unspecified 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 Pt will finish out abx and steroid dose at home.
[2016-10-27] MEDS ORDERED: TIOTROPIUM 18mcg/cap HANDIHALER ORAL INH SCH (09:00)
[2016-10-27] MEDS: BUDESONIDE INH.SOLN 0.5mg/2ml NEB AEROSOL SCH (09:31)
[2016-10-27] MEDS: SENNA + DOCUSATE TABLET PO SCH (10:18)
[2016-10-27] MEDS: PredniSONE 20 MG TABLET PO SCH (10:19)
[2016-10-27] MEDS: ENOXAPARIN 40 MG/0.4 ML INJECTION SQ SCH (10:21)
== END 2016-10-27 11:30 | disposition home or self-care (01) | DRG 190 ==
LOC: ED 23:30 → MED 10-23 02:27
PROVIDERS: ADMIT Emergency Medicine; ATTEND Internal Medicine